=== PATIENT | female | born 1940 | race Caucasian/White ===

== ENCOUNTER 2016-12-24 07:54 | Emergency (ER) | payer OTHER ==
--- NOTE | 2016-12-24 08:01 | EDPHY ---
H & P Source: Patient, EMS - Medical/Surgical History Hx Asthma: Yes Hx Chronic Respiratory Disease: Yes Hx Diabetes: No Hx Cardiac Disease: Yes Hx Renal Disease: No Hx Cirrhosis: No Hx Alcoholism: No Hx HIV/AIDS: No Hx Splenectomy or Spleen Trauma: No Other PMH: MS, GERD, PREVIOUS [id number], BLOOD CLOT IN COLON 2007 - Social History Smoking Status: Former smoker <Kehinde Mesa - Last Filed: 12/24/16 08:16> <Kendrick Polk - Last Filed: 12/24/16 10:29> HPI/ROS: HPI CHIEF COMPLAINT: Fall, on Coumadin HISTORY OF PRESENT ILLNESS: This patient very pleasant 76-year-old female significant past medical history for MS, uses a walker to ambulate, Migraine headaches,history of FL, and history of "intestinal clot which she takes Coumadin for" patient presents emergency room by EMS from the [facility] after she sustained a fall on . She initially did not have any pain from this fall but over the past 2-3 days she has had progressively worsening left posterior rib pain headache and neck pain. She states that she thinks it was a mechanical trip and fall she was trying to get the bathroom quickly and somehow fell she is unsure exactly what her back hit. Since then she has been getting progressively worsening left posterior rib pain. No trouble breathing. No hemoptysis. No abdominal pain. Upon arrival to the emergency room as she does tell me she is hungry. She is GCS 15 she is alert or x4. It is noted she does have ecchymoses left posterior ribs, ecchymosis left posterior knee, and left forearm. Past Medical History: Migraine headaches, MS, history of FL, intestinal clot which she takes Coumadin for Past Surgical History: No recent surgery Social History: Lives at [facility] Family History: ROS REVIEW OF SYSTEMS: A comprehensive 10 point review of systems is otherwise negative aside from elements mentioned in the history of present illness. Exam Constitutional appears well nontoxic, triage nursing summary reviewed, vital signs reviewed, awake/alert. Eyes normal conjunctivae and sclera, EOMI, PERRLA. HENT head/neck: Atraumatic exam of head and neck, no obvious signs of trauma , moist mucus membranes, no epistaxis, neck supple/ no meningismus, no raccoon eyes. Respiratory clear to auscultation bilaterally, normal breath sounds, no respiratory distress, no wheezing. Cardiovascular rate normal, regular rhythm, no murmur, no edema, distal pulses normal. Gastrointestinal soft, non-tender, no rebound, no guarding, normal bowel sounds, no distension, no pulsatile mass. Genitourinary no CVA tenderness. Musculoskeletal no midline vertebral tenderness, tender palpation over the left posterior ribs, full range of motion, no calf swelling, no tenderness of extremities, no meningismus, good pulses, neurovascularly intact. Skin ecchymosis present left posterior ribs, also behind left popliteal space , also left forearm. pink, warm, & dry, no rash, skin atraumatic. Neurologic awake, alert and oriented x 3, AAOx3, moves all 4 extremities equally, motor intact, sensory intact, CN II-XII intact, normal cerebellar, normal vision, normal speech. Psychiatric normal mood/affect. Heme/Lymph/Immune no lymphadenopathy. Differential Diagnosis: Includes but is not limited to in a particular order multiple contusions, soft tissue injury, rib fractures, pneumothorax, hemothorax , closed head injury, intracranial bleeding given trauma on Coumadin, cervical spine injury Medical Decision Making: Plan for patient IV establishment full program management specialist IV fentanyl for acute pain control, gentle IV hydration, CT head without contrast CT neck without contrast for trauma and a two view chest x- ray. Reassess. Re-evaluation: Patient signed over to Dr. Polk at 815 shift change. (Kehinde Mesa) Constitutional: Initial Vital Signs O2 Sat (%) 95 12/24/16 08:05 O2 Delivery Mode Nasal Cannula O2 (L/minute) 2 Allergies/Adverse Reactions: No Known Allergies Allergy (Unverified 12/15/10 13:28) Home Medications: Medication Instructions Recorded Atenolol 25 mg 02/02/10 LANSOPRAZOLE [Prevacid] 15 mg PO DAILY #30 02/02/10 Lisinopril 02/02/10 Prozac 02/02/10 Warfarin 02/02/10 Fluoxetine 04/30/14 Spiriva Inhaler (RX) 04/30/14 Amitriptyline HCl 12/24/16 Medical Decision Making <Kehinde Mesa - Last Filed: 12/24/16 08:16> - Diagnostics Imaging: Discussed imaging studies w/ automation qa analyst Radiologist <Kendrick Polk E - Last Filed: 12/24/16 10:29> - Diagnostics Imaging Results: Imaging Impressions Chest X-Ray 12/24/16 08:05 Impression: 1. New moderate age-indeterminate compression fractures in the low thoracic spine since 2007. 2. Right posterior lateral 10th rib fracture (age indeterminate). 3. Clear lungs except for bronchiolitis in the right upper lobe. 4. No pneumothorax or effusion. Chest CT 12/24/16 08:42 Impression: 1. Acute nondisplaced posterior left 12th rib fracture at the junction with the spine. 2. Trace left effusion. 3. No pneumothorax. 4. New spiculated 2.7 x 1.3 cm left upper lobe lesion along the major fissure. Differential diagnosis includes non-small cell lung cancer, infectious or inflammatory nodule, or less likely rounded atelectasis. Recommend PET-CT versus 3 month follow up noncontrast chest CT. 5. Minimally worse centrilobular emphysema and bronchiolitis involving the right upper lobe and lingula. 6. Moderate T10 and mild T11 and L1 compression fractures are likely old. Findings discussed with Emergency Department physician, Kendrick Polk, on December 24, 2016 at 10:10 a.m. ED Course/Re-evaluation: Patient's care transferred to [place] at 8:15 a.m.. Chest x-ray is not completely visible for any rib injuries on the left. She is currently in CT scanner and I will add on a CT chest. 10:25 a[address]. we discussed the CT results. She and her daughter are relieved. We discussed the nodule and follow up with PET scan. They will see their regular doctor pain for this. They are happy with this and declines further workup or testing at this time. They are eager to go home. (Kendrick Polk) Differential Diagnosis: Partial list of the Differential diagnosis considered include but were not limited to; rib fracture, pneumothorax, pulmonary contusion, head injury, neck injury and although unlikely based on the history and physical exam, I also considered acute coronary disease, syncope, arrhythmia. I discussed these differential diagnoses and the plan with the patient as well as the usual and expected course. The patient understands that the diagnosis is provisional and that in medicine we are not always correct and that further workup is often warranted. Usual and customary warnings were given. All of the patient's questions were answered. The patient was instructed to return to the emergency department should the symptoms at all worsen or return, otherwise to followup with the physician as we discussed. (Kendrick Polk) - Data Points Laboratory Results: Laboratory Results 12/24/16 08:30 12/24/16 08:30 12/24/16 12/24/16 12/24/16 08:30 08:30 08:30 WBC 5.18 10^3/uL 10^3/uL (3.80-9.50) RBC 4.51 10^6/uL 10^6/uL (4.18-5.33) Hgb 13.5 g/dL g/dL (12.6-16.3) Hct 41.0 % % (38.0-47.0) MCV 90.9 fL fL (81.5-99.8) MCH 29.9 pg pg (27.9-34.1) MCHC 32.9 g/dL g/dL (32.4-36.7) RDW 13.3 % % (11.5-15.2) Plt Count 249 10^3/uL 10^3/uL (150-400) MPV 8.9 fL fL (8.7-11.7) Neut % (Auto) 75.8 % H % (39.3-74.2) Lymph % (Auto) 14.9 % L % (15.0-45.0) Grand % (Auto) 4.4 % L % (4.5-13.0) Eos % (Auto) 3.7 % % (0.6-7.6) Baso % (Auto) 1.0 % % (0.3-1.7) Nucleat RBC Rel Count 0.0 % % (0.0-0.2) Absolute Neuts (auto) 3.93 10^3/uL 10^3/uL (1.70-6.50) Absolute Lymphs (auto) 0.77 10^3/uL L 10^3/uL (1.00-3.00) Absolute Monos (auto) 0.23 10^3/uL L 10^3/uL (0.30-0.80) Absolute Eos (auto) 0.19 10^3/uL 10^3/uL (0.03-0.40) Absolute Basos (auto) 0.05 10^3/uL 10^3/uL (0.02-0.10) Absolute Nucleated RBC 0.00 10^3/uL 10^3/uL (0-0.01) Immature Gran % 0.2 % % (0.0-1.1) Immature Gran # 0.01 10^3/uL 10^3/uL (0.00-0.10) PT 34.8 SEC H SEC (12.0-15.0) INR 3.39 H (0.83-1.16) APTT 58.9 SEC H SEC (23.0-38.0) Sodium 140 mEq/L mEq/L (134-144) Potassium 4.3 mEq/L mEq/L (3.5-5.2) Chloride 106 mEq/L mEq/L (97-110) Carbon Dioxide 23 mEq/l mEq/l (22-31) Anion Gap 11 mEq/L mEq/L (8-16) BUN 12 mg/dL mg/dL (7-23) Creatinine 0.7 mg/dL mg/dL (0.6-1.0) Estimated GFR > 60 Glucose 81 mg/dL mg/dL (70-100) Calcium 9.2 mg/dL mg/dL (8.5-10.4) Medications Given: Discontinued Medications Fentanyl (Sublimaze) 50 mcg IVP EDNOW ONE Stop: 12/24/16 08:07 Last Admin: 12/24/16 08:43 Dose: 50 mcg Sodium Chloride (Ns) 1,000 mls @ 0 mls/hr IV ONCE ONE PRN Reason: Wide Open Stop: 12/24/16 08:06 Last Admin: 12/24/16 08:34 Dose: 1,000 mls Ondansetron HCl (Zofran) 4 mg IVP EDNOW ONE Stop: 12/24/16 08:06 Last Admin: 12/24/16 08:43 Dose: 4 mg Departure <Kehinde Mesa - Last Filed: 12/24/16 08:16> <Kendrick Polk - Last Filed: 12/24/16 10:29> - Departure Disposition: Home, Routine, Self-Care Clinical Impression: Multiple contusions Rib fracture Qualifiers: Encounter type: initial encounter Rib fracture type: single rib Fracture type: closed Laterality: left Qualified Code(s): S22.32XA - Fracture of one rib, left side, initial encounter for closed fracture Condition: Good Instructions: Contusion in Adults (ED), Rib Fracture (ED) Additional Instructions: Follow-up with Dr. Badillo as discussed about the nodule in the left upper lobe to rule out non small cell lung cancer. We would recommend a PET scan within 3 months. Referrals: Patient,NotPresent [Unknown] - As per Instructions Freddy Azar MD [Medical Doctor] - As per Instructions
[2016-12-24] MEDS ORDERED: ONDANSETRON 4 MG/2 ML VIAL IVP ONE (08:05)
[2016-12-24] MEDS ORDERED: NS 1,000 ML IV ONE (08:05)
[2016-12-24] MEDS ORDERED: fentaNYL 100 MCG/2 ML INJ IVP ONE (08:06)
[2016-12-24 08:08] VITALS: TEMP 97.9; O2SAT 95
[2016-12-24 08:39] LABS: % IMMATURE GRANULYOCYTES 0.2 % (0.0-1.1); ABSOLUTE IMMATURE GRANULOCYTES 0.01 10^3/uL (0.00-0.10); ADD DIFF? NO; ADD MORPH? NO; ADD SCAN? NO; ATYPICAL LYMPHOCYTE FLAG 10 (0-99); FRAGMENT RBC FLAG 0 (0-99); HEMOGLOBIN 13.5 g/dL (12.6-16.3); LEFT SHIFT FLG 0 (0-99); LIPEMIA HEMOLYSIS FLAG 80 (0-99); MEAN CELL HEMOGLOBIN 29.9 pg (27.9-34.1); MEAN CELL HEMOGLOBIN CONCENTR. 32.9 g/dL (32.4-36.7); MEAN CELL VOLUME 90.9 fL (81.5-99.8); MEAN PLATELET VOLUME 8.9 fL (8.7-11.7); PLATELET CLUMPS FLAG 50 (0-99); PLATELET COUNT 249 10^3/uL (150-400); RED BLOOD CELL COUNT 4.51 10^6/uL (4.18-5.33); RED CELL DISTRIBUTION WIDTH 13.3 % (11.5-15.2)
[2016-12-24 08:51] LABS: INR 3.39 (0.83-1.16); PROTIME(PATIENT) 34.8 SEC (12.0-15.0)
[2016-12-24 09:00] LABS: APTT 58.9 SEC (23.0-38.0)
[2016-12-24 09:11] LABS: ANION GAP 11 mEq/L (8-16); CALCIUM 9.2 mg/dL (8.5-10.4); CARBON DIOXIDE 23 mEq/l (22-31); CHLORIDE 106 mEq/L (97-110); CREATININE 0.7 mg/dL (0.6-1.0); GLOMERULAR FILTRATION RATE > 60; GLUCOSE 81 mg/dL (70-100); POTASSIUM 4.3 mEq/L (3.5-5.2); SODIUM 140 mEq/L (134-144)
[2016-12-24] MEDS ORDERED: IOPAMIDOL (ISOVUE-300) 100 ML BTL IV ONE (09:13)
[2016-12-24 10:06] VITALS: RESP 14
[2016-12-24 10:48] VITALS: BP 103/72; PULSE 78
== END 2016-12-24 10:46 | disposition home or self-care (01) ==
LOC: EDUNIT#
DX: S22.32XA Fracture of one rib, left side, initial encounter for closed fracture (principal); S80.12XA Contusion of left lower leg, initial encounter; S50.12XA Contusion of left forearm, initial encounter; J45.909 Unspecified asthma, uncomplicated; I25.2 Old myocardial infarction; Z87.891 Personal history of nicotine dependence; Z79.01 Long term (current) use of anticoagulants; W01.0XXA Fall on same level from slipping, tripping and stumbling without subsequent striking against object, initial encounter; Y92.002 Bathroom of unspecified non-institutional (private) residence as the place of occurrence of the external cause
CPT/HCPCS: 70450; 71020; 71260; 72125; 96361; 96374; 96375; 99285; J2405; J3010; Q9967

== ENCOUNTER 2017-02-13 10:08 | Day surgery (SDC) | payer OTHER ==
[~2017-02-13 10:08] MED LIST: NS 1,000 ML IV SCH
[2017-02-13] MEDS ORDERED: FLUMAZENIL 0.5 MG/5 ML MDV IVP ONE (10:22)
[2017-02-13] MEDS ORDERED: MIDAZOLAM 2 MG/2 ML VIAL ONE (10:22)
[2017-02-13] MEDS ORDERED: NALOXONE HCL 0.4 MG/ML INJ ONE (10:22)
[2017-02-13] MEDS ORDERED: fentaNYL 100 MCG/2 ML INJ ONE (10:23)
[2017-02-13 10:45] LABS: HEMATOCRIT 39.7 % (38.0-47.0)
[2017-02-13 11:06] LABS: INR 1.12 (0.83-1.16); PROTIME(PATIENT) 14.3 SEC (12.0-15.0)
[2017-02-13 11:07] LABS: APTT 28.1 SEC (23.0-38.0)
[2017-02-13] MEDS ORDERED: ONDANSETRON 4 MG/2 ML VIAL ONE (17:09)
== END 2017-02-13 17:30 | disposition home health service (06) ==
LOC: FIMAGING 10:08
PROVIDERS: ATTEND Internal Medicine
PROC: 0W9B3ZZ Drainage of Left Pleural Cavity, Percutaneous Approach (ICD-10-PCS; principal; 2017-02-13 13:20)
PROC: 0BBG3ZX Excision of Left Upper Lung Lobe, Percutaneous Approach, Diagnostic (ICD-10-PCS; principal; 2017-02-13 13:20)
DX: C34.12 Malignant neoplasm of upper lobe, left bronchus or lung (principal); J93.9 Pneumothorax, unspecified; Z79.01 Long term (current) use of anticoagulants; Z66 Do not resuscitate
CPT/HCPCS: J2250; J2310; J2405; J3010

== ENCOUNTER → 2017-02-14 | Outpatient (CLI) | payer OTHER | LOC: FIMAGING 15:40 | PROVIDERS: ATTEND Radiology Diagnostic Radiology | DX: Z09 Encounter for follow-up examination after completed treatment for conditions other than malignant neoplasm (principal); J93.9 Pneumothorax, unspecified ==

== ENCOUNTER → 2017-07-03 | Outpatient (CLI) | payer OTHER ==
[~2017-07-03] MED LIST changes: +IOPAMIDOL (ISOVUE-300) 100 ML BTL ONE; -NS 1,000 ML IV SCH
== END ==
LOC: FIMAGING 11:16
PROVIDERS: ATTEND Radiology Radiation Oncology
DX: C34.12 Malignant neoplasm of upper lobe, left bronchus or lung (principal); R91.1 Solitary pulmonary nodule; J43.9 Emphysema, unspecified; M80.08XA Age-related osteoporosis with current pathological fracture, vertebra(e), initial encounter for fracture
CPT/HCPCS: 71260; Q9967

== ENCOUNTER → 2017-10-01 | Outpatient (CLI) | payer OTHER | LOC: FIMAGING 13:24 | PROVIDERS: ATTEND Radiology Radiation Oncology | DX: C41.2 Malignant neoplasm of vertebral column (principal); R91.8 Other nonspecific abnormal finding of lung field; S22.000A Wedge compression fracture of unspecified thoracic vertebra, initial encounter for closed fracture; Z92.3 Personal history of irradiation | CPT/HCPCS: 71260; Q9967 ==

== ENCOUNTER 2017-10-20 11:11 | Inpatient (IN) | payer OTHER ==
[2017-10-20] MEDS ORDERED: NS 1,000 ML IV ONE (11:42)
[2017-10-20] MEDS ORDERED: ONDANSETRON 4 MG/2 ML VIAL IVP ONE (11:42)
--- NOTE | 2017-10-20 11:49 | CPEKG ---
Heart Rate: 89 RR Interval: 674 P-R Interval: 208 QRSD Interval: 96 QT Interval: 424 QTC Interval: 516 P Ideal: 82 QRS Ideal: -51 T Wave Ideal: 61 EKG Severity - ABNORMAL ECG - EKG Impression: SINUS RHYTHM EKG Impression: GIAN, CONSIDER BIATRIAL ABNORMALITIES EKG Impression: LEFT ANTERIOR FASCICULAR BLOCK EKG Impression: CONSIDER RIGHT VENTRICULAR HYPERTROPHY EKG Impression: BORDERLINE R WAVE PROGRESSION, ANTERIOR LEADS EKG Impression: PROLONGED QT INTERVAL Electronically Signed By: Alessandra Celaya 20-Oct-2017 15:28:20
[2017-10-20] MEDS ORDERED: IOPAMIDOL (ISOVUE-300) 100 ML BTL ONE (11:53)
[2017-10-20] MEDS ORDERED: PHYTONADIONE 10 MG in NS 50 ML IV ONE (12:38)
--- NOTE | 2017-10-20 12:44 | EDPHY ---
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 Patient contacted her son and asked him to come and help her up off of the ground. She had fallen sometime in the sociology professor hours. Patient was found by the son on the floor with her walker next door. She seemed confused per the son's history. She was helped to her feet but declined EMS. Patient presented with her son and daughter via private car. At home she had had nausea and 1 bout of vomiting. Patient herself currently states that she has a headache, pain in her neck, and is nauseated. She reports she feels somewhat confused. She is oriented x3 on my examination. Patient states she has been feeling poorly for the past 4 days. Complaining of nausea and not eating or drinking well. Some vomiting intermittently over those days but no diarrhea. Patient denies chest pain or shortness of breath. She denies palpitations, lightheadedness. REVIEW OF SYSTEMS: Aside from elements discussed in the HPI, a comprehensive 10-point review of systems was reviewed and is negative. PAST MEDICAL HISTORY: As above, multiple sclerosis, recently diagnosed lung cancer, anticoagulated secondary to "clot in the abdomen ", history of myocardial infarction. SOCIAL HISTORY: Here with her family. She lives in independent living at [place]. VITAL SIGNS Reviewed by me. GENERAL: Elderly female, complaining of headache, nauseated. HEENT: Atraumatic. Eyes: PERRL, EOMI, No icterus, no injection. Mouth: Dry lips, moist mucous membranes. No erythema or lesions. Neck: supple with no adenopathy. No midline tenderness to palpation. LUNGS: Clear to auscultation bilaterally, no wheezes, rhonchi or rales. CHEST: Ecchymosis present over the right posterior chest. Large ecchymosis across the right anterior chest wall and right breast. CARDIAC: Regular rate and rhythm, no rubs, murmurs or gallops. ABDOMEN: Soft, nontender, nondistended, bowel sounds normal. BACK: No CVA tenderness. EXTREMITIES: Old ecchymosis across the left ft. Abrasions on both knees. Normal range of motion at the knees, ankle, feet. NEURO: Alert and oriented x3, grossly nonfocal. SKIN: Warm and dry, no rash. PSYCHIATRIC: Normal mentation, no agitation. Smoking Status: Former smoker Constitutional: Initial Vital Signs Temperature (C) 36.7 C 10/20/17 11:25 Heart Rate 92 10/20/17 11:25 Respiratory Rate 18 10/20/17 11:25 Blood Pressure 158/81 H 10/20/17 11:25 O2 Sat (%) 92 10/20/17 11:25 O2 Delivery Mode Nasal Cannula O2 (L/minute) 2 Allergies/Adverse Reactions: No Known Allergies Allergy (Unverified 12/15/10 13:28) Home Medications: Medication Instructions Recorded Atenolol 25 mg mg PO DAILY 02/02/10 Lisinopril mg PO DAILY 02/02/10 Prozac mg PO DAILY 02/02/10 Warfarin mg PO DAILY 02/02/10 Spiriva Inhaler (RX) mg IH DAILY 04/30/14 Amitriptyline HCl mg PO DAILY 12/24/16 Medical Decision Making - Diagnostics Imaging Results: Imaging Impressions Head CT 10/20/17 11:44 Impression: Acute right hemispheric hemorrhage, predominantly interventricular. Possible shunt tube malfunction. 2. CT Cervical Spine Without Contrast History: Trauma. All. Patient on Coumadin. Technique: Multislice helical CT through the cervical spine without contrast from the skull base to T1. Soft tissue and bone evaluation is performed. Sagittal and coronal reconstructions are obtained and reviewed. Dose reduction techniques were utilized. Findings: There is multilevel spondylosis between C2 and C7 with mild retrolisthesis at C3-C4, mild spondylolisthesis at C4-C5, and moderate retrolisthesis at C5-C6 and C6-C7. There is degenerative disk space narrowing between C3 and C7 with vacuum phenomenon present between C3 and C6. There are moderate posterior osteophytes present between C3 C5 and C7. There is calcification of the posterior longitudinal ligament associated with a moderate central disk protrusion at C2-C3. There is osteoarthritic change of the anterior C1-C2 articulation. There is degenerative calcification of the thickened transverse ligament greatest to the left of midline. The C1-C2 articulation is normally aligned. The odontoid process is intact. There is a large posterior nuchal ligament calcification behind the C5 vertebral body. The spinous processes are intact. Facet joints are normally aligned and intact. There is scattered degenerative facet disease. Impression: No acute posttraumatic abnormality identified. 3. CT Chest Without Contrast History: Trauma, fall Technique: Noncontrast, single breath-hold, [address] through the chest without contrast. Dose reduction techniques were utilized. Comparison: 07/03/2017 Findings: There is lateral segment left upper lobe consolidation with air bronchograms suggestive of pneumonia. This is superimposed upon diffuse emphysema. This was present previously and is little if at all changed in size. There is however increased infiltrate present locally around it. There is no pleural effusion or pericardial effusion. Heart size is normal. A right central venous catheter is present with tip in the superior vena cava. There is no lung mass or adenopathy. There are stable bilateral subcentimeter noncalcified peripheral noncalcified nodules raising the possibility of underlying ULISES infection. The largest nodule is in the posterior left lower lobe, is irregularly marginated and measures approximately 11 x 7 mm (image 158 series 4 ) and is specifically unchanged. There are stable old posterior left 10th 11th and 12th rib fractures. The costovertebral junctions are normally aligned. No obvious acute rib fracture is identified. Both shoulders are normally located. Compression abnormalities of T1, T4, T8, T10 and T11 are stable. No new compressions are identified. Impression: 1. No definite acute posttraumatic abnormality identified 2. Query underlying pneumonia superimposed upon a chronic area of consolidation in the lateral left upper lobe, abutting the left major fissure. Underlying lung malignancy cannot be excluded. 3. 4 month stability of multiple bilateral noncalcified pulmonary nodules, possibly indicating ULISES infection in this elderly patient with emphysema. General information for patients regarding this examination can be found at [email or web address] If you have questions or comments about this report, please contact me at [phone] (hospital) or [phone] (cell). 3. Final results are concordant with the initial interpretation. General information for patients regarding this examination can be found at [email or web address]. If you have questions or comments about this report, please contact me at (hospital) or [phone] (cell). Cervical Spine CT 10/20/17 11:45 Impression: Acute right hemispheric hemorrhage, predominantly interventricular. Possible shunt tube malfunction. 2. CT Cervical Spine Without Contrast History: Trauma. All. Patient on Coumadin. Technique: Multislice helical CT through the cervical spine without contrast from the skull base to T1. Soft tissue and bone evaluation is performed. Sagittal and coronal reconstructions are obtained and reviewed. Dose reduction techniques were utilized. Findings: There is multilevel spondylosis between C2 and C7 with mild retrolisthesis at C3-C4, mild spondylolisthesis at C4-C5, and moderate retrolisthesis at C5-C6 and C6-C7. There is degenerative disk space narrowing between C3 and C7 with vacuum phenomenon present between C3 and C6. There are moderate posterior osteophytes present between C3 C5 and C7. There is calcification of the posterior longitudinal ligament associated with a moderate central disk protrusion at C2-C3. There is osteoarthritic change of the anterior C1-C2 articulation. There is degenerative calcification of the thickened transverse ligament greatest to the left of midline. The C1-C2 articulation is normally aligned. The odontoid process is intact. There is a large posterior nuchal ligament calcification behind the C5 vertebral body. The spinous processes are intact. Facet joints are normally aligned and intact. There is scattered degenerative facet disease. Impression: No acute posttraumatic abnormality identified. 3. CT Chest Without Contrast History: Trauma, fall Technique: Noncontrast, single breath-hold, [address] through the chest without contrast. Dose reduction techniques were utilized. Comparison: 07/03/2017 Findings: There is lateral segment left upper lobe consolidation with air bronchograms suggestive of pneumonia. This is superimposed upon diffuse emphysema. This was present previously and is little if at all changed in size. There is however increased infiltrate present locally around it. There is no pleural effusion or pericardial effusion. Heart size is normal. A right central venous catheter is present with tip in the superior vena cava. There is no lung mass or adenopathy. There are stable bilateral subcentimeter noncalcified peripheral noncalcified nodules raising the possibility of underlying ULISES infection. The largest nodule is in the posterior left lower lobe, is irregularly marginated and measures approximately 11 x 7 mm (image 158 series 4 ) and is specifically unchanged. There are stable old posterior left 10th 11th and 12th rib fractures. The costovertebral junctions are normally aligned. No obvious acute rib fracture is identified. Both shoulders are normally located. Compression abnormalities of T1, T4, T8, T10 and T11 are stable. No new compressions are identified. Impression: 1. No definite acute posttraumatic abnormality identified 2. Query underlying pneumonia superimposed upon a chronic area of consolidation in the lateral left upper lobe, abutting the left major fissure. Underlying lung malignancy cannot be excluded. 3. 4 month stability of multiple bilateral noncalcified pulmonary nodules, possibly indicating ULISES infection in this elderly patient with emphysema. General information for patients regarding this examination can be found at [email or web address]. If you have questions or comments about this report, please contact me at (hospital) or [phone] (cell). 3. Final results are concordant with the initial interpretation. General information for patients regarding this examination can be found at [email or web address]. If you have questions or comments about this report, please contact me at [phone](hospital) or [phone] (cell). Chest CT 10/20/17 12:05 Impression: Acute right hemispheric hemorrhage, predominantly interventricular. Possible shunt tube malfunction. 2. CT Cervical Spine Without Contrast History: Trauma. All. Patient on Coumadin. Technique: Multislice helical CT through the cervical spine without contrast from the skull base to T1. Soft tissue and bone evaluation is performed. Sagittal and coronal reconstructions are obtained and reviewed. Dose reduction techniques were utilized. Findings: There is multilevel spondylosis between C2 and C7 with mild retrolisthesis at C3-C4, mild spondylolisthesis at C4-C5, and moderate retrolisthesis at C5-C6 and C6-C7. There is degenerative disk space narrowing between C3 and C7 with vacuum phenomenon present between C3 and C6. There are moderate posterior osteophytes present between C3 C5 and C7. There is calcification of the posterior longitudinal ligament associated with a moderate central disk protrusion at C2-C3. There is osteoarthritic change of the anterior C1-C2 articulation. There is degenerative calcification of the thickened transverse ligament greatest to the left of midline. The C1-C2 articulation is normally aligned. The odontoid process is intact. There is a large posterior nuchal ligament calcification behind the C5 vertebral body. The spinous processes are intact. Facet joints are normally aligned and intact. There is scattered degenerative facet disease. Impression: No acute posttraumatic abnormality identified. 3. CT Chest Without Contrast History: Trauma, fall Technique: Noncontrast, single breath-hold, [address] through the chest without contrast. Dose reduction techniques were utilized. Comparison: 07/03/2017 Findings: There is lateral segment left upper lobe consolidation with air bronchograms suggestive of pneumonia. This is superimposed upon diffuse emphysema. This was present previously and is little if at all changed in size. There is however increased infiltrate present locally around it. There is no pleural effusion or pericardial effusion. Heart size is normal. A right central venous catheter is present with tip in the superior vena cava. There is no lung mass or adenopathy. There are stable bilateral subcentimeter noncalcified peripheral noncalcified nodules raising the possibility of underlying ULISES infection. The largest nodule is in the posterior left lower lobe, is irregularly marginated and measures approximately 11 x 7 mm (image 158 series 4 ) and is specifically unchanged. There are stable old posterior left 10th 11th and 12th rib fractures. The costovertebral junctions are normally aligned. No obvious acute rib fracture is identified. Both shoulders are normally located. Compression abnormalities of T1, T4, T8, T10 and T11 are stable. No new compressions are identified. Impression: 1. No definite acute posttraumatic abnormality identified 2. Query underlying pneumonia superimposed upon a chronic area of consolidation in the lateral left upper lobe, abutting the left major fissure. Underlying lung malignancy cannot be excluded. 3. 4 month stability of multiple bilateral noncalcified pulmonary nodules, possibly indicating ULISES infection in this elderly patient with emphysema. General information for patients regarding this examination can be found at [email or web address]. If you have questions or comments about this report, please contact me at (hospital) or [phone] (cell). 3. Final results are concordant with the initial interpretation. General information for patients regarding this examination can be found at [email or web address]. If you have questions or comments about this report, please contact me at (hospital) or [phone] (cell). Foot X-Ray 10/20/17 12:59 Impression: Acute fractures of the second, third and fifth toes. Imaging: Discussed imaging studies w/ order caller Radiologist ED Course/Re-evaluation: Anticoagulated a 75-year-old female presenting with dizziness, headache, and nausea after a fall this morning. No obvious signs of head trauma on examination but the patient does have significant ecchymosis across her back and chest. Patient's head CT demonstrates bleeding associated with the ventriculostomy tube on the right. On return from CT, I reviewed the CT scans myself. Conferred with Dr. Castillo who was in agreement. Patient is on Coumadin. Last INR is 3.0. Course discussed with Dr. Galvan from Neurosurgery. Patient will be transferred urgently to the emergency department at [facility] for further evaluation and reversal of her anticoagulation if needed. Dr. Galvan asked that we hold on reversal of anticoagulation until he has a chance to see and evaluate the patient and review her studies. Patient's CT findings were discussed with the patient and the family. The understand the need for transfer. General trauma surgery was paged at 1:09 p.m.. Course discussed with Dr. Anne at 1:11 p.m. he will evaluate the patient at the [facility] emergency department. Remainder of the patient's trauma evaluation: Chest CT demonstrates no acute traumatic findings. Patient does have a history of recently diagnosed lung cancer which was treated with radiation. Please see the CT scans for further information regarding these findings. CT scan of the cervical spine demonstrates no acute traumatic findings. Left foot x-ray: Patient has proximal phalanx fractures of the 2nd, 3rd, and 5th toe of the left foot. Of note: Patient's troponin is also elevated at 0.038. EKG does not demonstrate any acute ischemic findings although she has significant baseline artifact. 1:38 p.m.: EMS has arrived. Patient will be transferred to [facility] for further evaluation and management of her post traumatic findings. She is to be NPO. Differential Diagnosis: Differential diagnosis of this patient's traumatic event was considered including but not limited to intracranial injury, long bone and pelvic bone fracture, spinal injury, intrathoracic injury, extremity injury, intra- abdominal injury, lacerations, abrasions, and contusions. - Data Points Laboratory Results: Laboratory Results 10/20/17 12:49 10/20/17 12:49 10/20/17 10/20/17 10/20/17 14:32 12:49 12:49 WBC RBC Hgb POC Hgb Hct POC Hct MCV MCH MCHC RDW Plt Count MPV Neut % (Auto) Lymph % (Auto) [place] % (Auto) Eos % (Auto) Baso % (Auto) Nucleat RBC Rel Count Absolute Neuts (auto) Absolute Lymphs (auto) Absolute Monos (auto) Absolute Eos (auto) Absolute Basos (auto) Absolute Nucleated RBC Immature Gran % Immature Gran # PT 30.3 SEC H SEC (12.0-15.0) INR 3.00 H (0.83-1.16) POC Sodium Sodium 137 mEq/L mEq/L (135-145) POC Potassium Potassium 3.6 mEq/L mEq/L (3.5-5.2) POC Chloride Chloride 93 mEq/L L mEq/L (97-110) Carbon Dioxide 25 mEq/l mEq/l (22-31) Anion Gap 19 mEq/L H mEq/L (8-16) POC BUN BUN 14 mg/dL mg/dL (7-23) Creatinine 0.6 mg/dL mg/dL (0.6-1.0) POC Creatinine Estimated GFR > 60 Glucose 123 mg/dL H mg/dL (70-100) POC Glucose Calcium 9.3 mg/dL mg/dL (8.5-10.4) Creatine Kinase CK-MB (CK-2) Fraction CK-MB (CK-2) % Creatine Kinase Interp Troponin I 0.038 ng/mL H ng/mL (0.000-0.034) Patient ABO/Rh AB POSITIVE 10/20/17 10/20/17 10/20/17 12:49 12:45 12:41 WBC 15.28 10^3/uL H 10^3/uL (3.80-9.50) RBC 4.27 10^6/uL 10^6/uL (4.18-5.33) Hgb 12.8 g/dL g/dL (12.6-16.3) POC Hgb 13.3 gm/dL gm/dL (12.6-16.3) Hct 38.2 % % (38.0-47.0) POC Hct 39 % % (38-47) MCV 89.5 fL fL (81.5-99.8) MCH 30.0 pg pg (27.9-34.1) MCHC 33.5 g/dL g/dL (32.4-36.7) RDW 13.6 % % (11.5-15.2) Plt Count 245 10^3/uL 10^3/uL (150-400) MPV 8.6 fL L fL (8.7-11.7) Neut % (Auto) 93.3 % H % (39.3-74.2) Lymph % (Auto) 2.7 % L % (15.0-45.0) [place] % (Auto) 3.5 % L % (4.5-13.0) Eos % (Auto) 0.1 % L % (0.6-7.6) Baso % (Auto) 0.1 % L % (0.3-1.7) Nucleat RBC Rel Count 0.0 % % (0.0-0.2) Absolute Neuts (auto) 14.26 10^3/uL H 10^3/uL (1.70-6.50) Absolute Lymphs (auto) 0.41 10^3/uL L 10^3/uL (1.00-3.00) Absolute Monos (auto) 0.54 10^3/uL 10^3/uL (0.30-0.80) Absolute Eos (auto) 0.01 10^3/uL L 10^3/uL (0.03-0.40) Absolute Basos (auto) 0.02 10^3/uL 10^3/uL (0.02-0.10) Absolute Nucleated RBC 0.00 10^3/uL 10^3/uL (0-0.01) Immature Gran % 0.3 % % (0.0-1.1) Immature Gran # 0.04 10^3/uL 10^3/uL (0.00-0.10) PT INR POC Sodium 135 mEq/L mEq/L (135-145) Sodium POC Potassium 3.8 mEq/L mEq/L (3.3-5.0) Potassium POC Chloride 96 mEq/L L mEq/L (97-110) Chloride Carbon Dioxide Anion Gap POC BUN 16 mg/dL mg/dL (7-23) BUN Creatinine POC Creatinine 0.6 mg/dL mg/dL (0.6-1.0) Estimated GFR Glucose POC Glucose 131 mg/dL H mg/dL (70-100) Calcium Creatine Kinase 266 IU/L H IU/L (0-156) CK-MB (CK-2) Fraction 8.33 ng/mL H ng/mL (0.00-4.55) CK-MB (CK-2) % 3.1 % % (0.0-4.0) Creatine Kinase Interp NEGATIVE (NEGATIVE) Troponin I Patient ABO/Rh Medications Given: Discontinued Medications Sodium Chloride (Ns) 1,000 mls @ 0 mls/hr IV ONCE ONE; Wide Open PRN Reason: Protocol Stop: 10/20/17 11:43 Last Admin: 10/20/17 12:49 Dose: 1,000 mls Phytonadione 10 mg/ Sodium (Chloride) 51 mls @ 102 mls/hr IV ONCE ONE Stop: 10/20/17 13:07 Last Admin: 10/20/17 13:35 Dose: Not Given Ondansetron HCl (Zofran) 4 mg IVP EDNOW ONE Stop: 10/20/17 11:43 Last Admin: 10/20/17 12:50 Dose: 4 mg Point of Care Test Results: 10/20/17 12:41 POC Sodium 135 POC Potassium 3.8 POC Chloride 96 L POC BUN 16 POC Creatinine 0.6 POC Glucose 131 H Departure - Departure Disposition: [facility] Clinical Impression: Intraventricular hemorrhage, Elevated troponin Headache Qualifiers: Headache type: other headache syndrome Qualified Code(s): G44.89 - Other headache syndrome Toe fracture, left Qualifiers: Encounter type: initial encounter Toe: lesser toe Fracture type: closed Phalanx : proximal Fracture alignment: displaced Qualified Code(s): S92.512A - Displaced fracture of proximal phalanx of left lesser toe(s), initial encounter for closed fracture Condition: Fair Referrals: Carlton Badillo MD [Primary Care Provider] - As per Instructions
[2017-10-20 12:57] LABS: PLATELET COUNT 245 10^3/uL (150-400)
[2017-10-20 13:15] LABS: PROTIME(PATIENT) 30.3 SEC (12.0-15.0)
[2017-10-20 13:41] LABS: CREATINE KINASE 266 IU/L (0-156)
[2017-10-20] MEDS ORDERED: NS 1,000 ML IV SCH (15:15)
[2017-10-20] MEDS ORDERED: hydrALAZINE 20 MG/ML VIAL IVP PRN (15:18)
[2017-10-20] MEDS ORDERED: ONDANSETRON 4 MG/2 ML VIAL IVP PRN (15:18)
--- NOTE | 2017-10-20 15:29 | EDPHY ---
ED Progress Note Narrative: The patient was evaluated by the trauma surgeon and neurosurgeon in the emergency department. She had been evaluated by the emergency department physician at [facility] prior to arrival. She will be admitted to the hospital under the care of the neurosurgeon for further evaluation and treatment.
--- NOTE | 2017-10-20 15:43 | GCON ---
[f rep st] CONSULTATION ADMITTING DIAGNOSIS: Fall. HISTORY: Ms. Chen is a 77-year-old white female who has a PRODUCTION REPRODUCTION MANAGER shunt in place for hydrocephalus. She had a heart attack in 1990. 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 She walks with a walker. She does have multiple sclerosis and is slightly weaker on the left side. She falls about once every 6 months. This morning she fell and had a difficult time getting up. She was found by her son apparently and taken to [facility]. At [facility] a CT of her head showed changes in her right posterior horn where the shunt enters the ventricle. Dr. Galvan will be seeing the patient in the very near future to decide whether this is representing an acute bleed or fibrosis. The rest of her evaluation at [facility] was negative. There are chronic changes in her cervical spine. 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 SOCIAL HISTORY: She smoked from ages 17 to 49 at 2 packs a day. She does not currently drink. ALLERGIES: She has no known drug allergies. MEDICATIONS: Amitriptyline, atenolol, lisinopril, Prozac, Spiriva, and warfarin. PAST SURGICAL HISTORY: D and C, the above-mentioned PRODUCTION REPRODUCTION MANAGER shunt, the surgery for the mesenteric blood clots, cataract extraction with intraocular lens placement , a left hip replacement, and a right hip surgery that she believes was a pinning. There is no history of rheumatic fever, tuberculosis, hepatitis, or transfusions. REVIEW OF SYSTEMS: She was diagnosed as having lung cancer last spring, has undergone radiation therapy. She wears lenses for visual correction. She has an upper dental plate. She has had occasional stress incontinence. She moves her bowels daily. Her multiple sclerosis is getting slowly worse. PHYSICAL EXAMINATION: NEUROLOGIC: She is awake and alert. She is oriented to person, place, and time, and a GCS is 15 at this point. She has difficulty subtracting 7's from 100. She came up with 33. She has no new neurologic complaints. Strength is 5/5 in all muscle groups. There are no focal lateralizing deficits. She has normal dental occlusion and normal cranial nerve function. NECK: There is a small lipoma just superior to her right clavicular head. I do not detect any bruits or thyroid enlargement. MUSCULOSKELETAL: Her back is structurally unremarkable. LUNGS: Clear to auscultation. CHEST: Stable to AP and lateral compression. CARDIAC: Shows S1 , S2 to be normal. ABDOMEN: Generous, but soft. The pelvis is stable to AP and lateral compression. SKIN: She has multiple contusions. She has a contusion in her right posterior lateral back at approximate level of 8th rib. She has a contusion of her right pectoralis major. She has a contusion over her right shoulder. She has contusions on her left wrist. She has a contusion over the right lateral proximal femur. She has bilateral knee contusions, right mid hernandez contusion, right distal hernandez contusion, bilateral forefoot contusions, and contusions over left toes 1-5. Note is made that her INR was approximately 3 at [facility]. I am unable to obtain records from 2007 to determine whether this was an arterial clot, a venous clot, and whether a hypercoagulation workup had been obtained. IMPRESSION/PLAN: 1. Patient with fall with questionable bleed into her right ventricle. Dr. Galvan to assess and he will make the decisions to correction of her anticoagulation. 2. History of mesenteric venous thrombosis 9 years ago. Etiology unclear and it is also unclear whether she has a hypercoagulable state. 3. 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 4. At this point, I see nothing further to add from a trauma standpoint. Dr. Galvan is coming to see the patient. . /[id number]/MODL MTDD
--- NOTE | 2017-10-20 16:13 | GHP ---
[f rep st] HISTORY AND PHYSICAL DATE OF ADMISSION: 10/20/2017 CONSULTING SERVICE: Emergency Medicine. LMFT/ADMITTING PHYSICIAN: Dr. Galvan. REASON FOR CONSULT: Intraventricular hemorrhage. 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 The patient contacted her son and asked him to come and hel p her get off the ground. She had fallen sometime in the skate maker, he believes approximately 7 a.m. She seemed a little bit confused to her son upon his arrival. She had nausea and a bout of vom iting at that time as well. She was taken to [facility] and head CT was performed, which demons trated a right intraventricular hemorrhage associated with a ventriculoperitoneal shunt catheter on t hat side. Later, she did admit to having some nausea for several days and she does have bruising of various ages, so it is unknown if the fall today played a role in her CT scan finding. She was also evaluated in the ED by Dr. Andrea Anne of Trauma surgery. He found no major injuries from. PAST MEDICAL HISTORY: Per HPI and myocardial infarction. ALLERGIES: No known drug allergies. CODE STATUS: Full. HOME MEDICATIONS: 1. Atenolol. 2. Lisinopril. 3. Prozac. 4. Warfarin. 5. Spiriva inhaler. 6. Amitriptyline. SOCIAL HISTORY: Lives in an independent living facility at [place], denies smoking, alcohol, or drug abuse. FAMILY HISTORY: No known history of intracranial hemorrhage. REVIEW OF SYSTEMS: 10-points reviewed and are negative other than mentioned in HPI. VITAL SIGNS: Afebrile with a temperature of 36.9 degrees Celsius, blood pressure 150/115, heart rate 92, respiratory rate 18, saturating 96% on 1 L nasal cannula. LABORATORIES: White blood cell count 15, hemoglobin 12.8, platelet count 245. INR of 3. Sodium 137 , potassium 3.6, BUN 14, creatinine 0.6, glucose 123. NEUROLOGIC EXAM: Patient is awake, alert, and oriented. She has formed speech and follows all comma nds. She has normal cranial nerves, is nonfocal neurologically and relatively normal sensory exam. Normal reflex exam. No cerebellar findings. Gait is deferred. IMAGING STUDIES: Review of imaging, I reviewed the patient's head CT and comparison from the past an d do agree that she has new intraventricular hemorrhage on the right side on the same side of a ventr iculoperitoneal shunt catheter. She has stable ventricular size and no signs of new ventricular obst ruction. CURRENT IMPRESSION AND PLAN: A 77-year-old female with multiple medical problems on Coumadin with a fall earlier today and nausea for several days with a head CT that demonstrates and a small amount of right lateral intraventricular hemorrhage associated with the ventriculoperitoneal shunt catheter on that side. The patient's initial CT was at 12 today and her fall was presumably around 6 or 7, so w e will repeat another head CT in 4 hours from the first. She has a very good neurologic exam and I a m reassured by this. It is possible that this hemorrhage is older than this morning as the patient h as had nausea for some days. We will admit her to the step-down unit for observation and a repeat he ad CT, antiemetics, and IV fluid hydration. She can eat given her very good neurologic exam and she will potentially be discharged tomorrow or the next day if things remain as they are now. We are not going actively reverse her Coumadin, but we will hold her doses and let her INR drift down on its ow n unless she has neurologic change. Thank you for this consult. /[id number]/MODL
[2017-10-20] MEDS: NS W/ 20 KCl/L 1,000 ML IV SCH (16:45)
[2017-10-20] MEDS: niCARdipine/NACL 200 ML IV SCH ×2 (17:51→21:00)
--- NOTE | 2017-10-21 06:51 | NEUSURGPN ---
Assessment/Plan: Assessment: 77 yo female that is s/p fall with IVH with hx of shunt placement Plan: -s/p fall with IVH and hx of shunt placement: CT stable with noted larger ventricles on CT c/w prior imaging years ago -awake and alert -PT/OT/ST pending -hold coumadin -follow neuro status-stable -pt understands and agrees -call with any questions or concerns -d/w Dr Galvan Subjective: Awake and alert. NAD. Eating/drinking and voiding. No f/c/n/v/d. Objective: AAO x 3, PERRLA/EOMI no droop CN 2-12 grossly intact +lt touch 5/5 BUE/BLE = Neuro Check Frequency: per routine Urinary Catheter in Place: No - Physician Discussed Patient with : Mandy Neurosurgery Physical Exam - Vitals, I&O, Labs I and O 10/20/17 10/21/17 10/22/17 05:59 05:59 05:59 Intake Total 1425 Output Total 300 Balance 1125 Weight 63.6 kg Intake: Oral (ml) 225 IV Infused (ml) 1200 NS W/ 20 KCl/L 1,000 ml @ 900 75 mls/hr IV CONT REBECCA Rx #:[id number] niCARdipine/NACL 200 ml @ 300 Titrate IV CONT REBECCA Rx#: [id number] Output: Urine (ml) 300 Bedpan 300 Other: Intake Quantity Yes Sufficient Number of Voids 1 Incontinence 5 Vital Signs Temp Pulse Resp BP Pulse Ox 36.9 C 98 24 H 135/55 H 100 10/21/17 04:00 10/21/17 05:43 10/21/17 05:43 10/21/17 05:43 10/21/17 05:43 ICD10 Worksheet Patient Problems: Problems Problem Status Onset Elevated troponin Acute Headache Acute Intraventricular hemorrhage Acute Toe fracture, left Acute
[2017-10-21] MEDS: NS W/ 20 KCl/L 1,000 ML IV SCH (07:33)
[2017-10-21] MEDS: niCARdipine/NACL 200 ML IV SCH ×2 (08:03→21:00)
[2017-10-21] MEDS: TIOTROPIUM INHALER 18 MCG/DOSE 5 DOSE/MDI IH SCH (08:53)
[2017-10-21] MEDS ORDERED: AMITRIPTYLINE HCL 10 MG TAB PO SCH (09:00)
--- NOTE | 2017-10-21 09:41 | ASMTCMCOM ---
CM Note CM Note Notes: 77 year old female admitted for intraventricular Hemorrhage assoc. with shunt. She has a hx of MS and a new dx of lung CA. Therapies to eval. Patient lives at [facility] and her son lives in [place]. XCM to follow Date Signed: 10/21/2017 09:40 AM Electronically Signed By:Adilene Flores LCSW
[2017-10-21] MEDS: ATENOLOL 25 MG TAB PO SCH (09:44)
[2017-10-21] MEDS: LISINOPRIL 5 MG TAB PO SCH (09:44)
[2017-10-21] MEDS: FLUoxetine 20 MG CAP PO SCH (09:44)
[2017-10-21] MEDS: hydrALAZINE 20 MG/ML VIAL IVP PRN ×2 (09:51→18:14)
--- NOTE | 2017-10-21 10:37 | TRAUMAPN ---
Assessment/Plan: Addendum to consult: She does have fractures of left proximal phalanxs 2,3,5 that are minimally displaced. I recommend either a walker boot or orthopedic consult. Objective: Vital Signs Temp Pulse Resp BP Pulse Ox 36.9 C 98 24 H 144/54 H 99 10/21/17 04:00 10/21/17 09:44 10/21/17 09:19 10/21/17 09:51 10/21/17 09:19 10/20/17 10/21/17 10/22/17 05:59 05:59 05:59 Intake Total 1425 Output Total 300 Balance 1125 PT 30.3 SEC (12.0-15.0) H 10/20/17 12:49 INR 3.00 (0.83-1.16) H 10/20/17 12:49
[2017-10-21] MEDS: AMITRIPTYLINE HCL 10 MG TAB PO SCH (22:23)
[2017-10-22] MEDS: NS W/ 20 KCl/L 1,000 ML IV SCH ×2 (00:37→18:23)
--- NOTE | 2017-10-22 06:52 | NEUSURGPN ---
Assessment/Plan: Assessment: 77 yo female that is s/p fall with IVH with hx of shunt placement Plan: -s/p fall with IVH and hx of shunt placement: CT stable with noted larger ventricles on CT c/w prior imaging years ago-Dr Galvan aware and will follow up with this as an outpt -awake and alert -PT/OT/ST-CPM -pt still on small amount of Cardene-hydralazine ordered -rehab consult pending -awaiting placement to rehab -hold coumadin -follow neuro status-stable -pt understands and agrees -call with any questions or concerns -d/w Dr Galvan Subjective: Awake and alert. NAD. Eating/drinking and voiding. No f/c/n/v/d. No watt/neck/ chest/abd or gu complaints. Objective: AAO x 3, PERRLA/EOMI no droop CN 2-12 grossly intact +lt touch 5/5 BUE/BLE = Neuro Check Frequency: per routine Urinary Catheter in Place: No - Physician Discussed Patient with Dr.: Galvan Neurosurgery Physical Exam - Vitals, I&O, Labs I and O 10/21/17 10/22/17 10/23/17 05:59 05:59 05:59 Intake Total 1685 Balance 1685 Intake: Oral (ml) 250 IV Infused (ml) 1435 NS W/ 20 KCl/L 1,000 ml @ 1180 75 mls/hr IV CONT REBECCA Rx #:[id number] niCARdipine/NACL 200 ml @ 255 Titrate IV CONT REBECCA Rx#: [id number] Other: Number of Voids Bedpan 1 Incontinence 5 Vital Signs Temp Pulse Resp BP Pulse Ox 37.0 C 80 25 H 148/52 H 100 10/22/17 00:00 10/22/17 06:00 10/22/17 06:00 10/22/17 06:00 10/22/17 06:00 ICD10 Worksheet Patient Problems: Problems Problem Status Onset Elevated troponin Acute Headache Acute Intraventricular hemorrhage Acute Toe fracture, left Acute
[2017-10-22] MEDS: TIOTROPIUM INHALER 18 MCG/DOSE 5 DOSE/MDI IH SCH (08:38)
[2017-10-22] MEDS: LISINOPRIL 5 MG TAB PO SCH (10:14)
[2017-10-22] MEDS: ATENOLOL 25 MG TAB PO SCH (10:14)
[2017-10-22] MEDS: FLUoxetine 20 MG CAP PO SCH (10:14)
--- NOTE | 2017-10-22 17:13 | ASMTCMCOM ---
CM Note CM Note Notes: Patient very lethargic when this CM visited her this afternoon. Son reported that patient was a lot more talkative on admission than she has been during her hospital stay. He was concern that there might be more pressure on her brain. Another CT Scan was ordered. At this time, In-pt Rehab is following her but questions whether or not she would be able to do the 3hrs of rehab on Acute. Daughter interested in SNF's in the [facility]. Referrals sent to [facility] and [place]. Date Signed: 10/22/2017 05:13 PM Electronically Signed By:Adilene Flores LCSW
[2017-10-22] MEDS ORDERED: PROTOCOL POTASSIUM 1 DOSE MISC PRN (17:54)
[2017-10-22] MEDS: niCARdipine/NACL 200 ML IV SCH (18:22)
[2017-10-22] MEDS: POTASSIUM Cl (KCl) 10 MEQ in D5W 100 ML IV SCH ×4 (18:33→22:35)
[2017-10-22] MEDS ORDERED: MAGNESIUM HYDROXIDE 30 ML UDCUP PO PRN (18:44)
[2017-10-22] MEDS ORDERED: LACTULOSE 20 GM/30 ML UDCUP PO PRN (18:44)
[2017-10-22] MEDS ORDERED: POLYETHYLENE GLYCOL 3350 17 GM PKT PO PRN (18:44)
[2017-10-22] MEDS ORDERED: BISACODYL 10 MG SUPP PR PRN (18:44)
[2017-10-22] MEDS ORDERED: IOPAMIDOL (ISOVUE 370) 100 ML BTL IV ONE (19:51)
[2017-10-22 20:38] LABS: INR 2.01 (0.83-1.16); PROTIME(PATIENT) 22.8 SEC (12.0-15.0)
[2017-10-22] MEDS: AMITRIPTYLINE HCL 10 MG TAB PO SCH (21:16)
[2017-10-22] MEDS: SENNOSIDES/DOCUSATE SODIUM TAB PO SCH (21:16)
--- NOTE | 2017-10-22 21:26 | CPEKG ---
Heart Rate: 97 RR Interval: 619 P-R Interval: 196 QRSD Interval: 86 QT Interval: 368 QTC Interval: 468 P Eccles: 80 QRS Eccles: -64 T Wave Eccles: 77 EKG Severity - ABNORMAL ECG - EKG Impression: SINUS TACHYCARDIA EKG Impression: VENTRICULAR PREMATURE COMPLEX EKG Impression: NONSPECIFIC T ABNORMALITIES, LATERAL LEADS EKG Impression: Consider old inferior infarct Electronically Signed By: Narayan Bills 23-Oct-2017 07:27:02
[2017-10-23] MEDS: niCARdipine/NACL 200 ML IV SCH (00:59)
--- NOTE | 2017-10-23 02:21 | GCON ---
[f rep st] CONSULTATION DATE OF CONSULTATION: 10/22/2017 REASON FOR CONSULTATION: I was asked by Dr. Galvan to see the patient in regard to her somnolence. HISTORY OF PRESENT ILLNESS: This is a 77-year-old female with multiple sclerosis. She has had a PACK TRAIN DRIVER shunt since 1993 and fell on the 11th of this month. Imaging in the emergency department showed a new ventricular hemorrhage. She was seen by Neurosurgery, who has recommended conservative treatment. I am called because of somnolence that is worse today. When I am seeing her, she is quite tachypneic, says that she feels short of breath. Notably she was on Coumadin and had this held. Her INR 2 days ago was 3; there has been no recheck. She is denying any chest pain. She has not really been coughing. She is incontinent, which is new today. Neurosurgery initially does not feel as though this is a primary neurologic issue; however, shunt series has been ordered and to me seems nondiagnostic. PAST MEDICAL/SURGICAL HISTORY: 1. Atrial fibrillation, on Coumadin. 2. Multiple sclerosis. 3. COPD. 4. Hypertension. 5. Depression. 6. Lung adenocarcinoma MEDICATIONS: Please see medication reconciliation. ALLERGIES: No known drug allergies. SOCIAL HISTORY: She lives alone. FAMILY HISTORY: Reviewed and noncontributory. REVIEW OF SYSTEMS: A 10-point review of systems is conducted and is negative except per HPI. PHYSICAL EXAM: VITAL SIGNS: Blood pressure 154/65, heart rate 86, respiration rate 26, saturating 96% on 1 L, temperature 37.6. GENERAL: The patient is an uncomfortable-appearing female, quite tachypneic when I am visiting with her. HEENT: Shows her to be normocephalic, atraumatic. She has a PACK TRAIN DRIVER shunt in place. CARDIOVASCULAR: Shows her to have an irregularly irregular rhythm. She has a 2/6 systolic murmur. PULMONARY: Shows her to be clear to auscultation bilaterally. She is quite tachypneic. ABDOMEN: Soft. She is mildly distended in the right side. SKIN: Shows no rash. : Shows no [place]. NEUROLOGIC: Shows her to be alert and oriented x3. She has decreased motor in her left leg, which nursing tells me has been the case since she was admitted to the hospital. PSYCHIATRIC: Difficult to obtain, though she appears to be interacting appropriately. LABORATORY DATA: White count is 12.9. INR is 3. Potassium is 3.0. IMAGING DATA: 1. I reviewed all of her imaging. 2. I discussed this with Wilfrid Comer. 3. I personally reviewed and interpreted her EKG. It is a poor tracing overall. Shows sinus rhythm. There is nothing acute that I appreciate here. IMPRESSION/PLAN: 1. Somnolence: Differential includes cardiac, neurologic, infectious, pulmonary. Given her uncomfortable appearance and significant decline, I feel as though a thorough workup is in order. I have ordered blood cultures, urinalysis, EKG and troponin, CT angiogram and ABG given her tachypnea. Will follow up on all this. 2. Ventricular hematoma: Shunt series has been ordered to assess for patency. It is unclear to me whether the shunt is patent or in the right position. Will defer to Neurosurgery on this. 3. Hypertension: Continue her antihypertensives. 4. Atrial fibrillation: Coumadin has been held. Will recheck her INR. 5. Toe fracture: She is currently in a boot. 6. Questionable lung cancer on her CT scan, as well as Mycobacterium avium- intracellulare on her CT scan: Repeat CT angiography will be performed this evening. 7. Multiple sclerosis. 8. Left leg weakness: I am told that this is chronic since her admission. Should just reassess this tomorrow. /[id number]/MODL MTDD
[2017-10-23] MEDS: POTASSIUM Cl (KCl) 10 MEQ in D5W 100 ML IV SCH ×3 (02:33→04:42)
--- NOTE | 2017-10-23 07:45 | NEUSURGPN ---
Assessment/Plan: Assessment: 77 yo female that is s/p fall with IVH with hx of shunt placement- pt with more somnolent this am Plan: -s/p fall with IVH and hx of shunt placement in 1983: CT stable with noted larger ventricles on CT c/w prior imaging years ago-Dr Galvan aware and will follow up with this as an outpt -yesterday I was called from RN stating that the patient was more somnolent. CT head ordered and reviewed with Dr Esparza that shows continued/resolving IVH and enlarged but stable ventricles. I ordered some labs (CBC/CMP) which was reviewed. I spoke with Dr Galvan and we reviewed her CT scans that shows stable ventricles for 7 years. She has a shunt that was placed in 1983. Shunt series shows ?discontinuation of shunt at head but looking at a CT head in 12/24 this appears the same in the market basket maker view. Dr Galvan updated this am and he reviewed the imaging as well. -IM consulted to evaluate for any underlying medical issue that could explain this as well-appreciate their care -Dr Galvan agrees with ordering a high volume (30cc) LP with opening pressures to see if this changes her MS. RN to call me immediately after the LP to see if this changes her MS. We will also study her CSF as well-order placed with IR -RN updated and will call me after the LP is completed -PT/OT/ST-CPM -pt still on small amount of Cardene-hydralazine ordered -rehab consult pending -continuing to hold coumadin -follow neuro status -call with any questions or concerns -when IM sees pt this am RN will let IM know that Dr Galvan wants to speak with them about her case Subjective: No new complaints. Per RN pt is still very somnolent. Objective: Awake to verbal-opens eyes but somnolent, PERRLA/EOMI no droop +lt touch GEETA x 4 Neuro Check Frequency: per routine Urinary Catheter in Place: No - Physician Discussed Patient with : Mandy Patient Seen by : Mandy Neurosurgery Physical Exam - Vitals, I&O, Labs I and O 10/22/17 10/23/17 10/24/17 05:59 05:59 05:59 Intake Total 1685 2724 Output Total 1500 1825 Balance 1685 1224 -1825 Intake: Oral (ml) 250 300 IV Intake (ml) 939 IV Infused (ml) 1435 1485 NS W/ 20 KCl/L 1,000 ml @ 1180 1245 75 mls/hr IV CONT REBECCA Rx #:[id number] niCARdipine/NACL 200 ml @ 255 240 Titrate IV CONT REBECCA Rx#: [id number] Output: Urine (ml) 1500 1825 Bedpan 500 Catheter 1000 1825 Other: Output Comment Catheter straight cath Number of Voids Bedpan 1 Incontinence 5 2 Vital Signs Temp Pulse Resp BP Pulse Ox 37.2 C 104 H 28 H 120/55 L 99 10/23/17 05:00 10/23/17 05:00 10/23/17 05:00 10/23/17 05:00 10/23/17 05:00 Laboratory Results 10/22/17 16:31 10/23/17 05:50 ICD10 Worksheet Patient Problems: Problems Problem Status Onset Elevated troponin Acute Headache Acute Intraventricular hemorrhage Acute Toe fracture, left Acute
[2017-10-23] MEDS: ACETAMINOPHEN 650 MG SUPP PR PRN ×2 (08:26→17:36)
[2017-10-23] MEDS ORDERED: POTASSIUM Cl (KCl) 100 ML IV SCH (08:30)
[2017-10-23] MEDS: POTASSIUM Cl (KCl) 10 MEQ in NS 100 ML IV SCH ×5 (09:01→21:41)
[2017-10-23] MEDS: FLUoxetine 20 MG CAP PO SCH (09:02)
[2017-10-23] MEDS: SENNOSIDES/DOCUSATE SODIUM TAB PO SCH ×2 (09:02→20:40)
[2017-10-23] MEDS: LISINOPRIL 5 MG TAB PO SCH (09:02)
[2017-10-23] MEDS: ATENOLOL 25 MG TAB PO SCH (09:02)
[2017-10-23] MEDS: hydrALAZINE 20 MG/ML VIAL IVP PRN (09:03)
[2017-10-23] MEDS: TIOTROPIUM INHALER 18 MCG/DOSE 5 DOSE/MDI IH SCH (09:03)
[2017-10-23] MEDS ORDERED: ALTEPLASE 2 MG VIAL IVP PRN (09:52)
--- NOTE | 2017-10-23 09:52 | HOSPPROG ---
Hospitalist Progress Note Assessment/Plan: 77 yo F w longstanding hydrocephalus admitted w fall, ICH. now w somnolence somnolence: history, images and notes reviewed NPH certainly reasonable consideration and I agree w large volume LP not a UTI ABG OK see below re: pneumonia ?HCAP: chest images abnormal on basis of prior CA (interp by me) given fever and slight worsening of airpsace disease, will treat for HCAP start zosyn d/w dr hoover AF: clinically in sinus ICH: per neurosurgery dispo: ICU Subjective: per nursing, more somnolent this AM Objective: Vital Signs Temp Pulse Resp BP Pulse Ox 38.7 C H 87 29 H 116/57 L 100 10/23/17 09:00 10/23/17 09:00 10/23/17 09:00 10/23/17 09:00 10/23/17 09:00 Laboratory Results 10/22/17 16:31 10/23/17 05:50 10/22/17 10/23/17 10/24/17 05:59 05:59 05:59 Intake Total 1685 2724 Output Total 1500 1825 Balance 1685 1224 -1825 PT 22.8 SEC (12.0-15.0) H 10/22/17 20:15 INR 2.01 (0.83-1.16) H 10/22/17 20:15 - Physical Exam Constitutional: appears nourished, other (somnolent. not answering questions. arousable) Eyes: PERRL, anicteric sclera Ears, Nose, Mouth, Throat: moist mucous membranes, hearing normal Cardiovascular: regular rate and rhythym, no murmur, rub, or gallop Respiratory: no respiratory distress, no rales or rhonchi Gastrointestinal: normoactive bowel sounds, soft, non-tender abdomen Genitourinary: no bladder fullness, sumner in urethra Skin: warm, normal color Musculoskeletal: no muscle tenderness Neurologic: No AAOx3 Psychiatric: No interacting appropriately ICD10 Worksheet Patient Problems: Problems Problem Status Onset Elevated troponin Acute Headache Acute Intraventricular hemorrhage Acute Toe fracture, left Acute
[2017-10-23 10:46] LABS: INR 1.65 (0.83-1.16); PROTIME(PATIENT) 19.6 SEC (12.0-15.0)
[2017-10-23] MEDS ORDERED: PIPERACILLIN/TAZO 3.375 GM/DEX 50 ML IV SCH (12:00)
--- NOTE | 2017-10-23 12:32 | GHP ---
[f rep st] HISTORY AND PHYSICAL PULMONARY/CRITICAL CARE CONSULTATION DATE OF ADMISSION: 10/21/2017 REFERRING PHYSICIAN: Nii Galvan MD REASON FOR REFERRAL: Evaluation and management of pulmonary infiltrates. HISTORY OF PRESENT ILLNESS: The patient is a 77-year-old woman who lives independently, and apparent ly about 5 days ago, she started to feel somewhat unsteady and also had some nausea. She was admitte d on the after she called her son and told him that she had fallen and was unable to get up. In the emergency department, a CT scan of her head showed an area of intraventricular hemorrhage near p reviously placed ventriculoperitoneal shunt. She also had ventriculomegaly. These have apparently b een stable for years. Yesterday, she developed more somnolence. CT scan of the head showed no acute changes. PAST MEDICAL HISTORY: Significant for: 1. Multiple sclerosis with some chronic left-sided weakness. 2. Right hip surgery. 3. Lung cancer. This was diagnosed in last December in the left upper lobe with a needle biopsy. She was deemed not to be a good surgical candidate, so underwent radiation over the summer. She has not had any treatment since radiation in the summer. 4. Atrial fibrillation, on anticoagulation. 5. COPD. 6. Depression. 7. Hypertension. MEDICATIONS: At the time of admission include amitriptyline, atenolol, lisinopril, Prozac, Spiriva, and warfarin. ALLERGIES: None. SOCIAL HISTORY: The patient lives alone. The patient has a 60 pack-year history of smoking, stopped 30 years ago. She does not drink alcohol. FAMILY HISTORY: Unremarkable. REVIEW OF SYSTEMS: Unobtainable due to the patient's somnolence. PHYSICAL EXAMINATION: GENERAL: The patient is somnolent. She is minimally arousable, but does not respond to questions. VITAL SIGNS: Her blood pressure is 116/57 with a heart rate of 87. Her tempe rature is 38.7. Oxygen saturations are 100% on 2 L. HEENT: Normocephalic and atraumatic. No icter us. NECK: No adenopathy. Trachea is midline. CHEST: Clear to auscultation. CARDIAC: Irregularl y irregular without murmur. ABDOMEN: Soft, nontender. Bowel sounds are present. EXTREMITIES: No clubbing, cyanosis, or edema. NEURO: The patient is somnolent but arousable. She is moving both si selina of her body, but does not follow any commands. LABORATORY DATA: White blood count is 12.2, down from 15.3. Her chemistry group is unremarkable. H er troponin is 0.083. An arterial blood gas from last night shows a pH of 7.46 with a pO2 of 75, a C O2 of 39, and a bicarbonate of 28. An INR is 1.6, down from 3.0 at admission. Her urinalysis shows 10-15 red blood cells and 1-[address] blood cells[address] A [address] scan of the chest shows emphysema with a left upper lobe mass. There is some patchy infiltrate around this. This is new from a CT scan of the chest done in June 2017, but is unchanged when com pared to a CT scan from September 26, 2017. There are also some scattered small indeterminate nodules that are stable. Images reviewed by me. A CT scan of the head shows no acute changes yesterday comp ared to the prior CT scans. ASSESSMENT: 1. Intraventricular hemorrhage. This may be due to a fall. It also could have been spontaneous and contributed to the fall and somnolence. 2. Somnolence. This is likely related to the CT scan findings of intraventricular hemorrhage. It i s possible that the shunt is not functioning due to hemorrhage. Neurosurgery is following. 3. Pulmonary infiltrate. This is stable when compared to a CT scan done over 3 weeks earlier and is unlikely to represent an acute pneumonia. The patient was started on Zosyn, but I think this can be stopped. The changes on CT scan are likely due to radiation as well as the underlying tumor. 4. Fever. This could be due to her intracranial process. There is no pyuria on urinalysis, and I t hink the chest is unchanged so it is doubtful that this represents an acute pneumonia. Blood culture s have been drawn and are pending. 5. Atrial fibrillation. The patient is on Coumadin chronically. Given her recent fall, this probab ly should be stopped. RECOMMENDATIONS: A large volume LP is planned by Neurosurgery to determine if that improves her ment al status. The patient's fever will be followed for the time being off antibiotics. The patient's C oumadin has been held, and FFP will be given to lower the INR to allow for the lumbar puncture. /[id number]/MODL
[2017-10-23 12:54] LABS: INR 1.48 (0.83-1.16); PROTIME(PATIENT) 18.1 SEC (12.0-15.0)
[2017-10-23] MEDS ORDERED: LIDOCAINE 1% 300 MG/30 ML SDV ONE (14:05)
--- NOTE | 2017-10-23 17:19 | ECHO ---
[email or web address] [address] [address] Main: [phone] Fax: Transthoracic Echocardiogram Name: CHRISSY SANTILLAN MR#: [id number] Study Date: 10/23/2017 Study Time: 08:53 AM Date of : 1940 Age: 77 year(s) Height: 172.7 cm (68 in.) Weight: 63.5 kg (140 lb.) BSA: 1.76 m2 Gender: Female Examination: Echo Indication: New onset A-fib, COPD, HTN Image Quality: Contrast: Requested by: Catracho Guerrero BP: 140 mmHg/59 mmHg Heart Rate: Rhythm: Indication: New onset A-fib, COPD, HTN Procedure Staff Head Of Marketing: Lebron Werner [facility] Reading Physician: Zach Saxena Requesting Provider: Conclusions: Normal size left ventricle. No LV hypertrophy. Global hypercontractility of the left ventricle. EF is 74 %. No regional wall motion abnormality. Diastolic dysfunction is present. . Normal size right ventricle. The left atrium is normal in size. The right atrium is normal in size. Mild mitral valve leaflet calcification is present. Trivial mitral valve regurgitation. The aortic valve is tri-leaflet and functions normally. The tricuspid valve is normal in appearance and function. Trivial to mild tricuspid valve regurgitation. The pulmonary artery pressure is mildly increased. The aorta is normal. Measurements: Chambers Valvular Assessment AV/MV Valvular Assessment TV/PV Normal Normal Normal Name Value Range Name Value Range Name Value Range Ao Patsy (MM): 2.8 cm (2.2 cm-3.7 AV Vmax: 1.68 m/s (1 m/s-1.7 TR Vmax: 3.23 mm/s ( - ) cm) m/s) TR PGmax: 42 mmHg ( - ) IVSd (2D): 0.9 cm (0.6 cm-1.1 AV maxP mmHg ( - ) syst. PAP: 47 mmHg ( - ) cm) LVOT Vmax: 1.38 m/s (0.7 m/s-1.1 PV Vmax: 1.25 m/s (0.6 m/s-0.9 LVDd (2D): 4.0 cm (3.9 cm-5.3 m/s) m/s) cm) MV E Vmax: 1.14 m/s ( - ) PV PGmax: 6 mmHg ( - ) LVDs (2D): 2.3 cm (2.1 cm-4 MV A Vmax: 1.06 m/s ( - ) cm) MV E/A: 1.08 ( - ) LVPWd (2D): 0.9 cm ( - ) Patient: CHRISSY SANTILLAN Study Date: 10/23/2017 Page 1 of 2 08:53 AM LVEF (2D): 74 (>=54 %) Continued Measurements: Chambers Valvular Assessment AV/MV Valvular Assessment TV/PV Name Value Name Value Name Value LADs Lon.2 cm MV E/E' Septal: 22.50 CVP (est.): 5 mmHg LA Area: 7.9 cm2 MV E/E' Lateral: 24.90 Findings: Left Ventricle: Normal size left ventricle. No LV hypertrophy. Global hypercontractility of the left ventricle. EF is 74 %. No regional wall motion abnormality. Diastolic dysfunction is present. . Right Ventricle: Normal size right ventricle. Left Atrium: The left atrium is normal in size. Right Atrium: The right atrium is normal in size. Mitral Valve: Mild mitral valve leaflet calcification is present. Trivial mitral valve regurgitation. Aortic Valve: The aortic valve is tri-leaflet and functions normally. Tricuspid Valve: The tricuspid valve is normal in appearance and function. Trivial to mild tricuspid valve regurgitation. The pulmonary artery pressure is mildly increased. Pulmonic Valve: Pulmonary valve not well visualized. Aorta: The aorta is normal. Pericardium: No pericardial effusion. Exam Comments: Pectus Excavatum. (No Signature Object) Patient: CHRISSY SANTILLAN Study Date: 10/23/2017 Page 2 of 2 08:53 AM [id number]
[2017-10-23] MEDS: NS W/ 20 KCl/L 1,000 ML IV SCH (17:37)
[2017-10-23] MEDS ORDERED: POTASSIUM Cl (KCl) 50 ML IV SCH (19:00)
[2017-10-23] MEDS ORDERED: POTASSIUM Cl (KCl) 10 MEQ in D5W 50 ML IV SCH (19:30)
[2017-10-23] MEDS: AMITRIPTYLINE HCL 10 MG TAB PO SCH (20:40)
[2017-10-24] MEDS: ACETAMINOPHEN 650 MG SUPP PR PRN (00:03)
[2017-10-24] MEDS: hydrALAZINE 20 MG/ML VIAL IVP PRN ×4 (00:13→18:03)
--- NOTE | 2017-10-24 07:08 | NEUSURGPN ---
Assessment/Plan: Assessment: 77 yo female that is s/p fall with IVH with hx of shunt placement- pt with more somnolent this am Plan: -s/p fall with IVH and hx of shunt placement in 1983: CT stable with noted larger ventricles on CT c/w prior imaging years ago-Dr Mandy logan and this was present from imaging for the last 6 yrs -2 days ago I was called from RN stating that the patient was more somnolent. CT head ordered and reviewed with Dr Esparza that shows continued/resolving IVH and enlarged but stable ventricles. I ordered some labs (CBC/CMP) which was reviewed. I spoke with Dr Galvan and we reviewed her CT scans that shows stable ventricles for 7 years. She has a shunt that was placed in 1980. Shunt series shows ?discontinuation of shunt at head but looking at a CT head in 12/24 this appears the same in the hand tennis ball coverer view. Dr Galvan updated and he reviewed the imaging as well. -Pt has had temps. We sent her for CSF studies and to get an opening pressure yesterday -opening pressure was 35. CSf studies reviewed and concerning for meningitis. I spoke with Dr Owens who will see the patient as well. We will start some abx of cefipme and vanco. I will contact family. As of yesterday the family doesnt want any surgery or heroic measures but I spoke with the daughter yesterday morning and she was ok with abx should the CSF studies warrant this treatment. Naturally we would want to remove the shunt but will see if she responds to abx treatments. -ID to see (Dr Owens) -Dr Galvan updated -IM on board -RN updated -PT/OT/ST-CPM -pt still on small amount of Cardene-hydralazine ordered -rehab consult cancelled and pt more likely to go to SNF -continuing to hold coumadin -follow neuro status -call with any questions or concerns Subjective: Awake to verbal. Somnolence better. No new events overnight. Objective: Awake to verbal-opens eyes less somnolent, PERRLA/EOMI no droop follows commands +lt touch GEETA x 4 Neuro Check Frequency: per routine Urinary Catheter in Place: No Catheter Insertion Date: 10/23/17 - Physician Discussed Patient with Dr.: Galvan Patient Seen by : [facility] Physical Exam - Vitals, I&O, Labs I and O 10/23/17 10/24/17 10/25/17 05:59 05:59 05:59 Intake Total 2724 1521 Output Total 1500 4725 Balance 1224 -3204 Weight 65.9 kg Intake: Oral (ml) 300 IV Intake (ml) 939 506 IV Infused (ml) 1485 1015 NS W/ 20 KCl/L 1,000 ml @ 1245 990 75 mls/hr IV CONT REBECCA Rx #:[id number] niCARdipine/NACL 200 ml @ 240 25 Titrate IV CONT REBECCA Rx#: [id number] Output: Urine (ml) 1500 4725 Bedpan 500 Catheter 1000 4725 Other: Output Comment Catheter straight cath Number of Voids Incontinence 2 Microbiology 10/23/17 16:25 Gram Stain - Final Cerebral Spinal Fluid Vital Signs Temp Pulse Resp BP Pulse Ox 38 C 110 H 31 H 154/74 H 98 10/24/17 06:00 10/24/17 06:00 10/24/17 06:00 10/24/17 06:29 10/24/17 06:00 Laboratory Results 10/22/17 16:31 10/24/17 04:50 ICD10 Worksheet Patient Problems: Problems Problem Status Onset Elevated troponin Acute Headache Acute Intraventricular hemorrhage Acute Toe fracture, left Acute
[2017-10-24] MEDS ORDERED: VANCOMYCIN HCL/NORMAL SALINE 250 ML IV SCH (07:30)
[2017-10-24] MEDS ORDERED: CEFEPIME HCL 2 GM in STERILE WATER INJ 12.5 ML IV SCH (07:45)
[2017-10-24] MEDS: ATENOLOL 25 MG TAB PO SCH (08:00)
[2017-10-24] MEDS: LISINOPRIL 5 MG TAB PO SCH (08:00)
[2017-10-24] MEDS: FLUoxetine 20 MG CAP PO SCH (08:03)
[2017-10-24] MEDS: SENNOSIDES/DOCUSATE SODIUM TAB PO SCH ×2 (08:03→22:50)
[2017-10-24] MEDS: TIOTROPIUM INHALER 18 MCG/DOSE 5 DOSE/MDI IH SCH (08:04)
[2017-10-24] MEDS ORDERED: POTASSIUM Cl (KCl) 50 ML IV ONE ×2 (08:09→21:00)
[2017-10-24 08:13] LABS: PLATELET COUNT 257 10^3/uL (150-400)
[2017-10-24] MEDS ORDERED: POTASSIUM Cl (KCl) 100 ML IV ONE (08:15)
--- NOTE | 2017-10-24 09:48 | PDINTPN ---
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 CSF evaluation showed cloudy, bloody fluid with 137,965 RBC and 671 WBC (46% PMN), but no roganisms on GS and culture NTD. Opening pressure was reported at 35 and TP 494. Started empiric cefepime and vanco with ID consult pending. Workup also included chest CT given history of lung cancer treated with XRT. CT revealed infiltrates that were thought to be new 09/26/17, but unchanged on admission. * IVH s/p fall- no intervention at the moment, but may need to remove VPS depending on outcome of workup/ID consult. Mental status improving though still blunter per RN * RODO infiltrate/adenocarcinoma- Iagree that the infiltrate is new compared to 06/2017,but stable compared to 09/26/17. This is more likely treatment related change (radiation pneumonitis?) rather than acute PNA. If symptoms should start to develop, could look at procalcitonin, but I favor observation for this. Her WBC is down to 10 today. * COPD- stable on spiriva alone for now. Could get albuterol PRN Subjective: No complaints but minimally verbal Objective: Vital Signs Temp Pulse Resp BP Pulse Ox 38.1 C 100 26 H 136/64 H 97 10/24/17 08:00 10/24/17 08:00 10/24/17 08:00 10/24/17 08:00 10/24/17 08:00 Microbiology 10/23/17 16:25 Gram Stain - Final Cerebral Spinal Fluid Laboratory Results 10/24/17 07:45 10/24/17 04:50 10/23/17 10/24/17 10/25/17 05:59 05:59 05:59 Intake Total 2724 1521 Output Total 1500 4725 Balance 1224 -3204 PT 18.1 SEC (12.0-15.0) H 10/23/17 12:30 INR 1.48 (0.83-1.16) H 10/23/17 12:30 Physical Exam - Physical Exam General Appearance: no apparent distress, other (minimally verbal but awake and answwers questions appropriately. ) EENT: PERRL/EOMI Neck: supple Respiratory: lungs clear, decreased breath sounds, No respiratory distress, No accessory muscle use Cardiac/Chest: regular rate, rhythm, No edema Abdomen: non-tender, soft, No distended Skin: normal color, warm/dry Lymphatic: no adenopathy Extremities: No pedal edema Neuro/Psych: alert, normal mood/affect, cognition abnormalities ICD10 Worksheet Patient Problems: Problems Problem Status Onset Elevated troponin Acute Headache Acute Intraventricular hemorrhage Acute Toe fracture, left Acute
--- NOTE | 2017-10-24 10:49 | PCMIDPN ---
Assessment/Plan: Assessment: Plan: Objective: Vital Signs Temp Pulse Resp BP Pulse Ox 38.5 C H 85 31 H 141/58 H 97 10/24/17 10:00 10/24/17 10:00 10/24/17 10:00 10/24/17 10:00 10/24/17 10:00 Microbiology 10/23/17 16:25 Gram Stain - Final Cerebral Spinal Fluid Laboratory Results 10/24/17 07:45 10/24/17 04:50 10/23/17 10/24/17 10/25/17 05:59 05:59 05:59 Intake Total 5365 1520 Output Total 1500 4725 Balance 1224 -3204 ICD10 Worksheet Patient Problems: Problems Problem Status Onset Elevated troponin Acute Headache Acute Intraventricular hemorrhage Acute Toe fracture, left Acute
[2017-10-24] MEDS: ACETAMINOPHEN 325 MG TAB PO PRN ×2 (12:22→17:59)
--- NOTE | 2017-10-24 13:56 | HOSPPROG ---
Hospitalist Progress Note Assessment/Plan: 77 yo F w longstanding hydrocephalus admitted w fall, ICH. 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 ICH: per neurosurgery dispo: ICU Subjective: case discussed w ken melchor and terese Objective: Vital Signs Temp Pulse Resp BP Pulse Ox 38.9 C H 84 31 H 162/69 H 96 10/24/17 12:00 10/24/17 12:00 10/24/17 12:00 10/24/17 12:00 10/24/17 12:00 Microbiology 10/23/17 16:25 Gram Stain - Final Cerebral Spinal Fluid Laboratory Results 10/24/17 07:45 10/24/17 04:50 10/23/17 10/24/17 10/25/17 05:59 05:59 05:59 Intake Total 2724 1521 Output Total 1500 4725 1300 Balance 1224 -3204 -1300 PT 18.1 SEC (12.0-15.0) H 10/23/17 12:30 INR 1.48 (0.83-1.16) H 10/23/17 12:30 - Physical Exam Constitutional: no apparent distress, other (more alter today) Eyes: anicteric sclera Cardiovascular: regular rate and rhythym, no murmur, rub, or gallop Respiratory: no respiratory distress, no rales or rhonchi Gastrointestinal: normoactive bowel sounds, soft, non-tender abdomen Genitourinary: no bladder fullness, sumner in urethra Skin: warm, normal color Musculoskeletal: full muscle strength, no muscle tenderness ICD10 Worksheet Patient Problems: Problems Problem Status Onset Elevated troponin Acute Headache Acute Intraventricular hemorrhage Acute Toe fracture, left Acute
--- NOTE | 2017-10-24 15:50 | ASMTCMCOM ---
CM Note CM Note Notes: Patient continues to need ICU care. There is a concern for Meningitis. Patient is currently getting ABX; cefipme and vanco. Patient has been more somnolent. Currently PT/OT still recommending inpatient rehab. CM will follow. Date Signed: 10/24/2017 03:49 PM Electronically Signed By:Anay Grajeda LCSW
[2017-10-24] MEDS: CEFEPIME HCL 2 GM in STERILE WATER INJ 12.5 ML IV SCH (20:39)
[2017-10-24] MEDS: AMITRIPTYLINE HCL 10 MG TAB PO SCH (20:40)
--- NOTE | 2017-10-24 21:25 | GCON ---
[f rep st] CONSULTATION INFECTIOUS DISEASE CONSULTATION REFERRING PHYSICIAN: Rk Comer PA-C REASON FOR REFERRAL: Pleocytosis. HISTORY OF PRESENT ILLNESS: Patient is a 77-year-old female, who has a longstanding history of a toni tricular peritoneal shunt. This was apparently placed decades ago for hydrocephalus. Unclear whethe r this was normal-pressure hydrocephalus or obstructive hydrocephalus. The patient also has a histor y of multiple sclerosis and a recent diagnosis of lung cancer. 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 She has had multiple falls at home recently, inc luding a fall this morning. The patient contacted her son this morning after she fell and asked him to come help her. To her son she seemed confused and had some nausea and vomited. She was taken to urgent care and a head CT was performed that demonstrated a right intraventricular hemorrhage. She w as taken to the emergency room and evaluated by Trauma. No major injuries were found. She was admit shashi to the ICU. A sample of spinal fluid from her shunt was taken. Those results returned showing s ignificant amounts of white cells and red cells. The patient also demonstrated fevers starting on morning of 10/23/2017 up to 39 degree Celsius. Vancomycin and cefepime were started empirically. We are consulted to help evaluate the data for the presence or absence of infection. PAST MEDICAL HISTORY: 1. Multiple sclerosis. 2. Lung cancer. 3. Mesentery artery thrombosis. 4. Hydrocephalus. 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 ANTIBIOTICS: 1. Vancomycin. 2. Cefepime. ALLERGIES: No known drug allergies. SOCIAL HISTORY: The patient lives in independent living at [place]. No tobacco, alcohol, or drug us e noted. FAMILY HISTORY: Reviewed, but noncontributory. REVIEW OF SYSTEMS: Other than that detailed above in history of present illness, 10-system review wa s obtained through interviews from the chart and family. PHYSICAL EXAMINATION: VITAL SIGNS: Temperature maximum 38.9, temperature current is 38.9, heart rat e is 84, respiratory rate is 31, blood pressure is 162/69. GENERAL: The patient is a well-formed, w ell-nourished, elderly female, in no acute distress. She is not toxic in appearance. She is alert. Unclear orientation. Patient is nonverbal. She is tracking of my presence in the room and opening her eyes to questions. HEENT: Normocephalic for age. The patient has bruises in multiple places ov er her body. No scleral icterus. No drainage from the nares. Eyes: Lids and conjunctivae within n ormal limits. Pupils are equal and round bilaterally. NECK: Supple. No meningismus. LUNGS: Bella r to auscultation bilaterally with good effort. HEART: Regular rate and rhythm. No significant per ipheral edema. SKIN: Warm and dry to the touch. Multiple ecchymosis. Otherwise, no rash or lesion . MUSCULOSKELETAL: No muscle belly tenderness is noted. No joint effusion, enlargement or arthriti s is noted. NEURO: Cranial nerves 2-12 seem to be intact. Peripheral sensation seems intact in ext remities. LABORATORY DATA: The patient has a CBC dated 10/24/2017, shows a white blood cell count of 10.5, hem oglobin 11.7, hematocrit of 36.4, and a platelet count of 257. Differential is left shifted with 90% segmented neutrophils. Serum chemistries on 10/23/2017, show sodium 138, potassium 3.7, chloride 10 4, bicarbonate 24, BUN of 11, and creatinine 0.5. Cerebral spinal fluid obtained 10/23/2017, shows 6 71 white cells with 138,000 red cells per cubic mm. Differential on the white cell shows 46% neutrop hils, 35% lymphocytes and 19% monocytes. CSF glucose is 34, CSF total protein is 494. Nasal influen za PCR both A and B are negative. MICROBIOLOGIC DATA: Patient has blood cultures dated 10/22/2017, which are no growth to date. CSF c ulture and Gram stain dated 10/23/2017, shows no organisms on Gram stain and no growth at 24 hours. ASSESSMENT: Fever-I suspect the fever in this setting is likely secondary to bleed within the centra l nervous system. At this point, the cell counts from the spinal fluid are more indicative of the ra ed of red cells to white cells found in blood than they are with white cell predominance which is wh at she would typically see in a bacterial meningitis standpoint. The differential of the white cells present is also more consistent with a circulating population. The fevers are likely secondary to i rritation and response from blood breakdown. Patient is on vancomycin and cefepime empirically. My plan would be to maintain this for 48 hours. If there is nothing growing in CSF culture at 48 hours these can be discontinued. I suspect that there may actually be, given the increase in ventricle siz e on imaging, that the patient may have dysfunctional shunt. It is my understanding that the family is not wanting to do anything surgical or invasive for this issue. This complicates the patient's we ll being going forward I suspect. We will leave these decisions to the neurosurgery and the family. PLAN: 1. Continue both cefepime and vancomycin at present dose for now. 2. Re-evaluate at 48 hours and discontinue if no growth in spinal fluid culture. /[id number]/MODL
[2017-10-25] MEDS: HYDROCODONE/APAP 5/325 TAB PO PRN ×2 (00:05→13:32)
[2017-10-25] MEDS: NS W/ 20 KCl/L 1,000 ML IV SCH ×2 (04:25→18:45)
[2017-10-25] MEDS: niCARdipine/NACL 200 ML IV SCH (04:44)
[2017-10-25] MEDS: TIOTROPIUM INHALER 18 MCG/DOSE 5 DOSE/MDI IH SCH (08:15)
[2017-10-25] MEDS: FLUoxetine 20 MG CAP PO SCH (08:19)
[2017-10-25] MEDS: ACETAMINOPHEN 325 MG TAB PO PRN (08:19)
[2017-10-25] MEDS: ATENOLOL 25 MG TAB PO SCH (08:19)
[2017-10-25] MEDS: SENNOSIDES/DOCUSATE SODIUM TAB PO SCH ×2 (08:19→22:01)
[2017-10-25] MEDS: CEFEPIME HCL 2 GM in STERILE WATER INJ 12.5 ML IV SCH (08:21)
[2017-10-25] MEDS: LISINOPRIL 5 MG TAB PO SCH (08:21)
[2017-10-25] MEDS ORDERED: VANCOMYCIN HCL/NORMAL SALINE 250 ML IV SCH (08:30)
[2017-10-25] MEDS ORDERED: POTASSIUM Cl (KCl) 50 ML IV ONE (08:51)
[2017-10-25] MEDS ORDERED: POTASSIUM Cl (KCl) 20 MEQ in NS 50 ML IV ONE (09:00)
--- NOTE | 2017-10-25 11:31 | PCMIDPN ---
Assessment/Plan: Assessment: Interventricular bleed-CSF shows no growth in culture at this point. Will discontinue empiric vancomycin and ceftazidime. Plan: 1. Discontinue empiric antibiotics. 2. Will sign off at this point please call for future questions. 10/25/17 13:38 Subjective: Patient continues to be stable clinically over the last 24 hours. Ongoing fevers. Objective: Vancomycin # 2 Cefepime # 2 Vital Signs Temp Pulse Resp BP Pulse Ox 38.3 C 74 25 H 126/62 H 97 10/25/17 10:00 10/25/17 10:00 10/25/17 10:00 10/25/17 10:00 10/25/17 10:00 Microbiology 10/23/17 16:25 Gram Stain - Final Cerebral Spinal Fluid Laboratory Results 10/24/17 07:45 10/25/17 04:30 10/24/17 10/25/17 10/26/17 05:59 05:59 05:59 Intake Total 1521 2687 Output Total 4993 2475 Balance -3204 212 - Physical Exam General Appearance: WD/WN, alert, no apparent distress, non-toxic Neuro/Psych: alert, normal mood/affect ICD10 Worksheet Patient Problems: Problems Problem Status Onset Elevated troponin Acute Headache Acute Intraventricular hemorrhage Acute Toe fracture, left Acute
--- NOTE | 2017-10-25 11:40 | NEUSURGPN ---
Assessment/Plan: Assessment/Plan: Assessment: 77 yo female that is s/p fall with IVH with hx of shunt placement, now on abx for abnormal CSF studies concerning for meningitis. Plan: -s/p fall with IVH and hx of shunt placement in 1983: CT stable with noted larger ventricles on CT c/w prior imaging years ago-Dr Mandy logan and this was present from imaging for the last 6 yrs -3 days ago I was called from RN stating that the patient was more somnolent. CT head ordered and reviewed with Dr Esparza that shows continued/resolving IVH and enlarged but stable ventricles. I ordered some labs (CBC/CMP) which was reviewed. I spoke with Dr Galvan and we reviewed her CT scans that shows stable ventricles for 7 years. She has a shunt that was placed in 1980. Shunt series shows ?discontinuation of shunt at head but looking at a CT head in 12/24 this appears the same in the cherry dipper view. Dr Galvan updated and he reviewed the imaging as well. -Patient had CSF studies that were concerning for meningitis. Seen by ID as well. -Will start Cefipime and Vanco, and if cultures come back negative, can discontinue - Family doesn't want any surgery or heroic measures but we spoke with the daughter yesterday morning and she was ok with abx. - Naturally we would want to remove the shunt but will see if she responds to abx treatments first and have this discussion later with the family if warranted -IM on board -PT/OT/ST-CPM -continuing to hold coumadin -follow neuro status -call with any questions or concerns Subjective: Awake to verbal. States she feel "better" than yesterday. Objective: Awake to verbal-opens eyes less somnolent, PERRLA/EOMI no droop follows commands +lt touch GEETA x 4 Catheter Insertion Date: 10/23/17 - Physician Discussed Patient with : Mandy Neurosurgery Physical Exam - Vitals, I&O, Labs I and O 10/24/17 10/25/17 10/26/17 05:59 05:59 05:59 Intake Total 1521 2687 Output Total 9330 0725 Balance -3204 212 Weight 65.9 kg 65.3 kg Intake: Oral (ml) 900 IV Intake (ml) 506 IV Infused (ml) 1015 1787 NS W/ 20 KCl/L 1,000 ml @ 990 1754 75 mls/hr IV CONT REBECCA Rx #:[id number] niCARdipine/NACL 200 ml @ 25 33 Titrate IV CONT REBECCA Rx#: [id number] Output: Urine (ml) 5401 4807 Catheter 1723 4337 Other: Number of Stools Catheter 0 Microbiology 10/23/17 16:25 Gram Stain - Final Cerebral Spinal Fluid Vital Signs Temp Pulse Resp BP Pulse Ox 38.3 C 74 25 H 126/62 H 97 10/25/17 10:00 10/25/17 10:00 10/25/17 10:00 10/25/17 10:00 10/25/17 10:00 Laboratory Results 10/24/17 07:45 10/25/17 04:30 ICD10 Worksheet Patient Problems: Problems Problem Status Onset Elevated troponin Acute Headache Acute Intraventricular hemorrhage Acute Toe fracture, left Acute
--- NOTE | 2017-10-25 13:30 | HOSPPROG ---
Hospitalist Progress Note Assessment/Plan: 77 yo F w longstanding hydrocephalus admitted w fall, ICH. 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 ICH: per neurosurgery plan of care: family leaning towards a more palliative approach dispo: ICU Subjective: 35 minutes spent at bedside discussing plan of care w daughter, pall care drafter chief design Objective: Vital Signs Temp Pulse Resp BP Pulse Ox 38.3 C 74 25 H 126/62 H 97 10/25/17 10:00 10/25/17 10:00 10/25/17 10:00 10/25/17 10:00 10/25/17 10:00 Microbiology 10/23/17 16:25 Gram Stain - Final Cerebral Spinal Fluid Laboratory Results 10/24/17 07:45 10/25/17 04:30 10/24/17 10/25/17 10/26/17 05:59 05:59 05:59 Intake Total 1521 2687 Output Total 4725 2475 Balance -3204 212 PT 18.1 SEC (12.0-15.0) H 10/23/17 12:30 INR 1.48 (0.83-1.16) H 10/23/17 12:30 - Physical Exam Constitutional: no apparent distress, other (somnolent. not participating in discussion) Eyes: PERRL Ears, Nose, Mouth, Throat: moist mucous membranes, hearing normal Cardiovascular: regular rate and rhythym, no murmur, rub, or gallop Respiratory: no respiratory distress, no rales or rhonchi Gastrointestinal: normoactive bowel sounds, soft, non-tender abdomen Genitourinary: no bladder fullness, No sumner in urethra Skin: warm, normal color Musculoskeletal: full muscle strength, no muscle tenderness Neurologic: AAOx3 ICD10 Worksheet Patient Problems: Problems Problem Status Onset Elevated troponin Acute Headache Acute Intraventricular hemorrhage Acute Toe fracture, left Acute
--- NOTE | 2017-10-25 15:05 | ASMTCMCOM ---
CM Note CM Note Notes: Met with patient's daughter, Padmaja as the family has decided they want their mom to be moved to SNF for meterman care. Padmaja was given several names of SNF's to go tour. She would like to have something in [place] as she will be the one to manage most of her mother's needs although her brother will be managing the finances. Padmaja will let us know her 2 top choices so we can then follow-up. The family had a palliative care consult today and they are interested in Hospice but want to set up the SNF placement first. They have used [facility] for other family members with positive results but are flexible. CM will follow. Date Signed: 10/25/2017 03:04 PM Electronically Signed By:Anay Grajeda LCSW
[2017-10-25] MEDS: hydrALAZINE 20 MG/ML VIAL IVP PRN (18:50)
[2017-10-25] MEDS: AMITRIPTYLINE HCL 10 MG TAB PO SCH (22:00)
[2017-10-26] MEDS: HYDROCODONE/APAP 5/325 TAB PO PRN ×2 (00:27→20:24)
[2017-10-26] MEDS: ACETAMINOPHEN 325 MG TAB PO PRN (05:47)
[2017-10-26] MEDS: NS W/ 20 KCl/L 1,000 ML IV SCH (08:27)
--- NOTE | 2017-10-26 09:08 | SOAPPROG ---
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 Objective: Vital Signs Temp Pulse Resp BP Pulse Ox 36.8 C 106 H 15 151/83 H 93 10/26/17 08:44 10/26/17 08:44 10/26/17 08:44 10/26/17 08:44 10/26/17 08:44 Microbiology 10/23/17 16:25 Gram Stain - Final Cerebral Spinal Fluid Laboratory Results 10/24/17 07:45 10/26/17 05:15 10/25/17 10/26/17 10/27/17 05:59 05:59 05:59 Intake Total 2687 2463 Output Total 2475 2300 Balance 212 163 PT 18.1 SEC (12.0-15.0) H 10/23/17 12:30 INR 1.48 (0.83-1.16) H 10/23/17 12:30 awake, alert oriented to month/year PERRL, no facial droop GEETA x 4 + light touch ICD10 Worksheet Patient Problems: Problems Problem Status Onset Elevated troponin Acute Headache Acute Intraventricular hemorrhage Acute Toe fracture, left Acute
[2017-10-26] MEDS: hydrALAZINE 20 MG/ML VIAL IVP PRN (10:07)
[2017-10-26] MEDS: ATENOLOL 25 MG TAB PO SCH (10:10)
[2017-10-26] MEDS: FLUoxetine 20 MG CAP PO SCH (10:11)
[2017-10-26] MEDS: LISINOPRIL 5 MG TAB PO SCH (10:11)
[2017-10-26] MEDS: SENNOSIDES/DOCUSATE SODIUM TAB PO SCH ×2 (10:20→20:24)
--- NOTE | 2017-10-26 13:27 | HOSPPROG ---
Hospitalist Progress Note Assessment/Plan: 77 yo F w longstanding hydrocephalus admitted w fall, ICH. 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 ICH: per neurosurgery plan of care: family leaning towards a more palliative approach she is DNR suspect she will improve slowly over time but may not achieve her pre hospitalization baseline dispo: inpt Subjective: more alert- able to say she has pain "in one spot" Objective: Vital Signs Temp Pulse Resp BP Pulse Ox 36.8 C 83 20 151/70 H 92 10/26/17 08:44 10/26/17 11:18 10/26/17 11:18 10/26/17 11:18 10/26/17 11:18 Microbiology 10/23/17 16:25 Gram Stain - Final Cerebral Spinal Fluid CSF Culture - Final Laboratory Results 10/24/17 07:45 10/26/17 05:15 10/25/17 10/26/17 10/27/17 05:59 05:59 05:59 Intake Total 2687 2463 Output Total 2475 2300 Balance 212 163 PT 18.1 SEC (12.0-15.0) H 10/23/17 12:30 INR 1.48 (0.83-1.16) H 10/23/17 12:30 - Physical Exam Constitutional: no apparent distress, appears nourished Eyes: PERRL, anicteric sclera Ears, Nose, Mouth, Throat: moist mucous membranes, hearing normal Cardiovascular: regular rate and rhythym, No tachycardia Respiratory: no respiratory distress, no rales or rhonchi Gastrointestinal: normoactive bowel sounds, soft, non-tender abdomen Genitourinary: no bladder fullness, No sumner in urethra Skin: warm Musculoskeletal: No full muscle strength Neurologic: No AAOx3 ICD10 Worksheet Patient Problems: Problems Problem Status Onset Elevated troponin Acute Headache Acute Intraventricular hemorrhage Acute Toe fracture, left Acute
--- NOTE | 2017-10-26 15:57 | ASMTCMCOM ---
CM Note CM Note Notes: Met with pt's dtr and son-in-law today. They stated have been looking at LTC facilities in [place]. [facility] did not have a room and they are considering [facility]. At the time, the conversation cenetred on pt having a LTC placement with hospice. Later in PM, [facility] [place] called to say that dtr had been back in and was now looking at a rehab stay. Unfortunately, PT/OT notes indicate pt is comfort care only and therefore [facility] cannot accept for rehab unless PT/OT get involved again and find that pt has rehab needs. Plan is to discuss with dtr tomorrow. Date Signed: 10/26/2017 03:56 PM Electronically Signed By:Brook Price LCSW
[2017-10-26] MEDS: AMITRIPTYLINE HCL 10 MG TAB PO SCH (20:24)
[2017-10-27] MEDS: FLUoxetine 20 MG CAP PO SCH (09:01)
[2017-10-27] MEDS: ATENOLOL 25 MG TAB PO SCH (09:01)
[2017-10-27] MEDS: LISINOPRIL 5 MG TAB PO SCH (09:10)
[2017-10-27] MEDS: SENNOSIDES/DOCUSATE SODIUM TAB PO SCH ×2 (09:11→20:26)
--- NOTE | 2017-10-27 09:16 | SOAPPROG ---
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 NO weakness. Objective: Vital Signs Temp Pulse Resp BP Pulse Ox 37.3 C 102 H 33 H 125/77 H 91 L 10/27/17 09:02 10/27/17 09:02 10/27/17 09:02 10/27/17 09:10 10/27/17 09:02 Microbiology 10/23/17 16:25 Gram Stain - Final Cerebral Spinal Fluid CSF Culture - Final Laboratory Results 10/24/17 07:45 10/26/17 05:15 10/26/17 10/27/17 10/28/17 05:59 05:59 05:59 Intake Total 2463 1184 Output Total 2300 1550 Balance 163 -366 PT 18.1 SEC (12.0-15.0) H 10/23/17 12:30 INR 1.48 (0.83-1.16) H 10/23/17 12:30 Awake, alert, confused on location, oriented to month/year PERRL, EOMI no facial droop GEETA x 4 + light touch ICD10 Worksheet Patient Problems: Problems Problem Status Onset Elevated troponin Acute Headache Acute Intraventricular hemorrhage Acute Toe fracture, left Acute
[2017-10-27] MEDS: ACETAMINOPHEN 325 MG TAB PO PRN (10:12)
--- NOTE | 2017-10-27 12:48 | HOSPPROG ---
Hospitalist Progress Note Assessment/Plan: 77 yo F w longstanding hydrocephalus admitted w fall, ICH. now w somnolence somnolence: I believe she has hypoactive delirium that is slowly improving continue current management dc IV pain meds ?HCAP: chest imaging reviewed and not really unchanged from 09/26 so hold on abx fever: possibly 2/2 ICH concern for meningitis noted although csf most c/w blood flu swab neg AF: clinically in sinus folewy: remove today ICH: per neurosurgery plan of care: family leaning towards a more palliative approach she is DNR suspect she will improve slowly over time but may not achieve her pre hospitalization baseline 10/27: she is more alert today. suspect she will continue to improve slowly over time PT OT evals today dispo: inpt Subjective: more alert Objective: Vital Signs Temp Pulse Resp BP Pulse Ox 37.0 C 86 32 H 129/73 H 93 10/27/17 10:46 10/27/17 10:00 10/27/17 10:00 10/27/17 10:00 10/27/17 10:00 Microbiology 10/23/17 16:25 Gram Stain - Final Cerebral Spinal Fluid CSF Culture - Final Laboratory Results 10/24/17 07:45 10/26/17 05:15 10/26/17 10/27/17 10/28/17 05:59 05:59 05:59 Intake Total 2463 1184 200 Output Total 2300 1550 Balance 163 -366 200 PT 18.1 SEC (12.0-15.0) H 10/23/17 12:30 INR 1.48 (0.83-1.16) H 10/23/17 12:30 - Physical Exam Constitutional: no apparent distress, appears nourished Eyes: PERRL, anicteric sclera Ears, Nose, Mouth, Throat: moist mucous membranes, hearing normal Cardiovascular: regular rate and rhythym, no murmur, rub, or gallop Respiratory: no respiratory distress, no rales or rhonchi Gastrointestinal: normoactive bowel sounds, soft, non-tender abdomen Genitourinary: no bladder fullness, sumner in urethra Skin: warm, normal color Musculoskeletal: full muscle strength, no muscle tenderness Neurologic: AAOx3 ICD10 Worksheet Patient Problems: Problems Problem Status Onset Elevated troponin Acute Headache Acute Intraventricular hemorrhage Acute Toe fracture, left Acute
--- NOTE | 2017-10-27 13:55 | ASMTCMCOM ---
CM Note CM Note Notes: Discussed SNF rehab vs LTC bed with Dr Rhodes. Dr Rhodes feels that pt will continue to improve and rehab stay is reasonable. PT/OT will be reordered. LM for [facility]. They will need new therapy notes faxed when they are ready. CM to follow. Date Signed: 10/27/2017 01:54 PM Electronically Signed By:Brook Price LCSW
[2017-10-27] MEDS: AMITRIPTYLINE HCL 10 MG TAB PO SCH (20:27)
--- NOTE | 2017-10-28 06:23 | NEUSURGPN ---
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 Follows commands. No new events or concerns. Objective: Awake, alert, confused on location, oriented to month/year PERRL, EOMI no facial droop GEETA x 4 + light touch Neuro Check Frequency: per routine Urinary Catheter in Place: No Catheter Insertion Date: 10/23/17 - Physician Discussed Patient with : Mandy Neurosurgery Physical Exam - Vitals, I&O, Labs I and O 10/27/17 10/28/17 10/29/17 05:59 05:59 05:59 Intake Total 1184 520 Output Total 1550 350 Balance -366 170 Intake: Oral (ml) 400 520 IV Infused (ml) 784 NS W/ 20 KCl/L 1,000 ml @ 784 75 mls/hr IV CONT REBECCA Rx #:[id number] Output: Urine (ml) 1550 350 Bedpan 0 Catheter 1550 350 Other: Intake Quantity No Sufficient Number of Voids Catheter 1 Bladder Scan Volume (ml) Bedpan 20 Catheter 239 Vital Signs Temp Pulse Resp BP Pulse Ox 36.9 C 81 16 111/63 93 10/28/17 04:00 10/28/17 04:00 10/28/17 04:00 10/28/17 04:00 10/28/17 04:00 Laboratory Results 10/24/17 07:45 10/26/17 05:15 ICD10 Worksheet Patient Problems: Problems Problem Status Onset Elevated troponin Acute Headache Acute Intraventricular hemorrhage Acute Toe fracture, left Acute
[2017-10-28] MEDS: ATENOLOL 25 MG TAB PO SCH (08:47)
[2017-10-28] MEDS: FLUoxetine 20 MG CAP PO SCH (08:48)
[2017-10-28] MEDS: LISINOPRIL 5 MG TAB PO SCH (08:50)
[2017-10-28] MEDS: SENNOSIDES/DOCUSATE SODIUM TAB PO SCH ×2 (08:58→21:04)
--- NOTE | 2017-10-28 11:26 | HOSPPROG ---
Hospitalist Progress Note Assessment/Plan: 77 yo F w longstanding hydrocephalus admitted w fall, ICH. now w somnolence somnolence: continues to improve ?HCAP: chest imaging reviewed and not really unchanged from 09/26 so hold on abx fever: possibly 2/2 ICH concern for meningitis noted although csf most c/w blood flu swab neg AF: clinically in sinus folewy: remove today ICH: per neurosurgery plan of care: family leaning towards a more palliative approach she is DNR suspect she will improve slowly over time but may not achieve her pre hospitalization baseline 10/27: she is more alert today. suspect she will continue to improve slowly over time PT OT evals today 10/28: more alert today rec dc to snf dispo: inpt Subjective: more alert Objective: Vital Signs Temp Pulse Resp BP Pulse Ox 36.1 C 82 17 111/63 94 10/28/17 08:00 10/28/17 08:00 10/28/17 08:00 10/28/17 08:47 10/28/17 08:00 Microbiology 10/22/17 20:10 Blood Culture - Final Blood 10/22/17 20:10 Blood Culture - Final Blood Laboratory Results 10/24/17 07:45 10/26/17 05:15 10/27/17 10/28/17 10/29/17 05:59 05:59 05:59 Intake Total 1184 520 Output Total 1550 350 Balance -366 170 PT 18.1 SEC (12.0-15.0) H 10/23/17 12:30 INR 1.48 (0.83-1.16) H 10/23/17 12:30 - Physical Exam Constitutional: no apparent distress, other (answers questions. this is the best she has been) Eyes: PERRL, anicteric sclera Ears, Nose, Mouth, Throat: moist mucous membranes, hearing normal Cardiovascular: regular rate and rhythym, no murmur, rub, or gallop Respiratory: no respiratory distress, no rales or rhonchi Gastrointestinal: normoactive bowel sounds, soft, non-tender abdomen Genitourinary: no bladder fullness, No sumner in urethra Skin: warm, normal color Musculoskeletal: No full muscle strength Neurologic: No AAOx3 ICD10 Worksheet Patient Problems: Problems Problem Status Onset Elevated troponin Acute Headache Acute Intraventricular hemorrhage Acute Toe fracture, left Acute
[2017-10-28] MEDS: ACETAMINOPHEN 325 MG TAB PO PRN (12:57)
--- NOTE | 2017-10-28 13:47 | PDIAF ---
- Diagnosis Diagnosis: ICH Code Status: Do Not Resuscitate - Medication Management Discharge Medications: Medications to Continue on Transfer Atenolol [Tenormin 25 mg (*)] 25 mg PO DAILY 02/02/10 [Last Taken 10/19/17] FLUoxetine [Prozac 20 MG (*)] 20 mg PO DAILY 02/02/10 [Last Taken 10/19/17] Lisinopril [Zestril 5 mg (*)] 2.5 mg PO DAILY 02/02/10 [Last Taken 10/19/17] Tiotropium Inhaler [Spiriva Handihaler] 18 mcg IH DAILY 04/30/14 [Last Taken 06/26] Amitriptyline HCl [Elavil 10 mg (*)] 10 mg PO DAILY 12/24/16 [Last Taken ] Polyethylene Glycol 3350 [Miralax 17 gm (*)] 17 gm PO DAILY PRN pkt 10/28/17 [ Last Taken Unknown] Discharge Medications: Refer to the Discharge Home Medication list for PRN reason. - Orders Services needed: Registered Nurse, Certified Metalworker, Physical Therapy, Occupational Therapy, Speech Language Pathologist Isolation Type: None Diet Texture: Regular Texture Diet, Thin Liquids, Meds Whole w/Liquids - Follow Up Care Current Providers and Referrals: Carlton Badillo MD [Primary Care Provider] - As per Instructions
--- NOTE | 2017-10-28 14:09 | ASMTLACE ---
[facility] Length of stay for Answers: 7-13 days current admission Acuity / Level of Answers: Yes Care: Did the patient have an inpatient admission? Comorbidities - select Answers: Cerebrovascular disease all that apply (CVA, TIA, aneurysms, vasc ular dementia) History of falls Previous myocardial infarction Other Notes: Lung cancer, multiple sclerosis # of Emergency department Answers: 1-2 visits in the last 6 months Social determinants Answers: Mental health diagnosis (anxiety, depression, pers onality disorders, etc.) Score: 18 Date Signed: 10/28/2017 02:08 PM Electronically Signed By:JJ Oglesby
--- NOTE | 2017-10-28 15:29 | ASDISCHSUM ---
Discharge Information Plan Status:SNF Medically Cleared to Leave:10/27/2017 Discharge Date:10/27/2017 CM D/C Disposition:[facility] Facility ADT D/C Disposition: Projected Discharge Date:10/28/2017 11:00 AM Transportation at D/C:ALS/BLS Discharge Delay Reason: Follow-Up Date:10/28/2017 11:00 AM Discharge Slot: Final Diagnosis:Fall: Intraventricular Hemorrhage Placement Information Referral Type:*Correction/SNF Referral ID:[id number] Provider Name:[facility]//[facility] Address 1:[address] [place] [address] Address 2: City:[place] Selection Factors: State:[place] Referral Type:[facility] Referral ID:[id number] Provider Name: Address 1: Phone Number: Address 2: Fax Number: City: Selection Factors: State: Patient Contact Information Contact Name:ARACELI Relationship:Daughter Address: Work Phone: City: [facility] Phone: State/Zip Code: Email: Financial Information Financial Class:Medicare Primary Plan Desc:MEDICARE INPATIENT Primary Plan Number:[id number] Secondary Plan Desc:LILLY Secondary Plan Number:[id number] Assessment Information BC CM Progress Note CM Note CM Note Notes: 77 year old female admitted for intraventricular Hemorrhage assoc. with shunt. She has a hx of MS and a new dx of lung CA. Therapies to eval. Patient lives at [facility] and her son lives in [place]. XCM to follow Date Signed: 10/21/2017 09:40 AM Electronically Signed By:Adilene Flores LCSW [facility] Length of stay for Answers: 7-13 days current admission Acuity / Level of Answers: Yes Care: Did the patient have an inpatient admission? Comorbidities - select Answers: Cerebrovascular disease all that apply (CVA, TIA, aneurysms, vasc ular dementia) History of falls Previous myocardial infarction Other Notes: Lung cancer, multiple sclerosis # of Emergency department Answers: 1-2 visits in the last 6 months Social determinants Answers: Mental health diagnosis (anxiety, depression, pers onality disorders, etc.) Score: 18 Date Signed: 10/28/2017 02:08 PM Electronically Signed By:JJ Oglesby [facility] Progress Note CM Note CM Note Notes: Patient very lethargic when this CM visited her this afternoon. Son reported that patient was a lot more talkative on admission than she has been during her hospital stay. He was concern that there might be more pressure on her brain. Another CT Scan was ordered. At this time, In-pt Rehab is following her but questions whether or not she would be able to do the 3hrs of rehab on Acute. Daughter interested in SNF's in the [facility]. Referrals sent to [facility] and [place]. Date Signed: 10/22/2017 05:13 PM Electronically Signed By:Adilene Flores LCSW [facility] Progress Note CM Note CM Note Notes: Patient continues to need ICU care. There is a concern for Meningitis. Patient is currently getting ABX; cefipme and vanco. Patient has been more somnolent. Currently PT/OT still recommending inpatient rehab. CM will follow. Date Signed: 10/24/2017 03:49 PM Electronically Signed By:Anay Grajeda LCSW [facility] CM Progress Note CM Note CM Note Notes: Met with patient's daughter, Padmaja as the family has decided they want their mom to be moved to SNF for [facility] care. Padmaja was given several names of SNF's to go tour. She would like to have something in [place] as she will be the one to manage most of her mother's needs although her brother will be managing the finances. Padmaja will let us know her 2 top choices so we can then follow-up. The family had a palliative care consult today and they are interested in Hospice but want to set up the SNF placement first. They have used [facility] for other family members with positive results but are flexible. CM will follow. Date Signed: 10/25/2017 03:04 PM Electronically Signed By:Anay Grajeda LCSW [facility] RG Progress Note CM Note CM Note Notes: Met with pt's dtr and son-in-law today. They stated have been looking at LTC facilities in [place]. [facility] did not have a room and they are considering [facility] and [facility]. At the time, the conversation cenetred on pt having a LTC placement with hospice. Later in PM, [facility] called to say that dtr had been back in and was now looking at a rehab stay. Unfortunately, PT/OT notes indicate pt is comfort care only and therefore [facility] cannot accept for rehab unless PT/OT get involved again and find that pt has rehab needs. Plan is to discuss with dtr tomorrow. Date Signed: 10/26/2017 03:56 PM Electronically Signed By:Brook Price LCSW [facility] CM Progress Note CM Note CM Note Notes: Discussed SNF rehab vs LTC bed with Dr Rhodes. Dr Rhodes feels that pt will continue to improve and rehab stay is reasonable. PT/OT will be reordered. LM for [facility]. They will need new therapy notes faxed when they are ready. CM to follow. Date Signed: 10/27/2017 01:54 PM Electronically Signed By:Brook Price LCSW Case Management Discharge Plan Note Case Management Discharge Discharge Order Complete? Answers: Yes Patient to Obtain Answers: [facility] Transportation Arranged Answers: [facility] W/C Transport will Pick (Date 10/28/2017 04:30 PM & Time) Case Management Transport Answers: Yes Form Complete Faxed Final Orders Answers: Yes Family Notified Answers: Yes Discharge Comments Notes: Pt discharging to [facility] today. D/C orders/meds sent via [employer]. Transport arranged by [facility]. IM signed, copy in chart and given to pt. Date Signed: 10/28/2017 03:27 PM Electronically Signed By:JJ Oglesby Intervention Information Intervention Type:*MARCIANO-Signed Date of Service:10/21/2017 09:36 AM Patient Type:Observation Staff Member:Marivel Michael Hours: Discipline: Severity: Comment: Intervention Type:*IM-Signed Date of Service:10/28/2017 02:32 PM Patient Type:Inpatient Staff Member:Marivel Michael Hours: Discipline: Severity: Comment:
--- NOTE | 2017-10-28 16:48 | ASMTCMCOM ---
CM Note CM Note Notes: Pt not discharging today due to need for BLS transport rather than w/c. [facility] unable to get here until 6:30 to 7:30 tonight because of weather. Discharge postponed until tomorrow after discussion with [facility]. Date Signed: 10/28/2017 04:47 PM Electronically Signed By:JJ Oglesby
--- NOTE | 2017-10-28 17:38 | GDS ---
[f rep st] DISCHARGE SUMMARY DISCHARGE DIAGNOSES: 1. Intracranial hemorrhage in the right lateral ventricle, as well as the left lateral ventricle. 2. History of ventriculoperitoneal shunt. 3. Encephalopathy, now improving. 4. Multiple sclerosis. 5. Chronic obstructive pulmonary disease. 6. Hypertension. 7. Depression. 8. Lung adenocarcinoma. 9. Fevers felt secondary to blood. 10. Urinary retention. HOSPITAL COURSE: Please see Admission History and Physical by Dr. Nii Galvan and consult by Dr. Gillian Guerrero. The patient presented with a fall. She had intracranial hemorrhage. She was followed by Neurosurgery with nonoperative management. She was on nicardipine for a bit of time. The patient b ecame somnolent. There was concern as to the cause. LP was performed which showed a lot of red cell s and a small amount of white cells, consistent with blood. Cultures were negative. She had negativ e UA. Chest imaging showed was abnormal because of her history of lung cancer and lung radiation. H owever, it was felt ultimately, when multiple scans were compared, to be no different. She did not h ave a pulmonary embolism. She received large volume lumbar puncture with really no change in her mental status. From about the 16th on, the patient gradually began to clear to the point where she is alert and able to do things, like answer the phone, but remains encephalopathic. There is actually a hospice consult pursued but ultimately, since the patient is beginning to improve a bit, she is discharged to SNF. /[id number]/MODL
[2017-10-28] MEDS: HYDROCODONE/APAP 5/325 TAB PO PRN (21:04)
[2017-10-28] MEDS: AMITRIPTYLINE HCL 10 MG TAB PO SCH (21:05)
[2017-10-29 08:17] VITALS: BP 129/62; RESP 17; TEMP 98.3; O2SAT 96
[2017-10-29] MEDS: ATENOLOL 25 MG TAB PO SCH (08:45)
[2017-10-29] MEDS: LISINOPRIL 5 MG TAB PO SCH (08:45)
[2017-10-29] MEDS: FLUoxetine 20 MG CAP PO SCH (08:45)
[2017-10-29] MEDS: HYDROCODONE/APAP 5/325 TAB PO PRN (08:47)
[2017-10-29 08:48] VITALS: PULSE 70
[2017-10-29] MEDS: SENNOSIDES/DOCUSATE SODIUM TAB PO SCH (09:00)
== END 2017-10-29 12:06 | DRG 64 ==
LOC: CED 11:11 → INTOOBSV 15:17 → F2N 16:56 → OBSVTOIN 10-21 14:54 → F1N 10-25 18:32
PROVIDERS: ADMIT Neurological Surgery; ATTEND Internal Medicine
PROC: 02HV33Z Insertion of Infusion Device into Superior Vena Cava, Percutaneous Approach (ICD-10-PCS; principal; 2017-10-23)
PROC: 009U3ZX Drainage of Spinal Canal, Percutaneous Approach, Diagnostic (ICD-10-PCS; 2017-10-23)
DX: I62.9 Nontraumatic intracranial hemorrhage, unspecified (principal); G93.40 Encephalopathy, unspecified; S92.502A Displaced unspecified fracture of left lesser toe(s), initial encounter for closed fracture; W19.XXXA Unspecified fall, initial encounter; Y92.009 Unspecified place in unspecified non-institutional (private) residence as the place of occurrence of the external cause; R50.9 Fever, unspecified; R33.9 Retention of urine, unspecified; G35 Multiple sclerosis; C34.32 Malignant neoplasm of lower lobe, left bronchus or lung; G91.9 Hydrocephalus, unspecified; I25.10 Atherosclerotic heart disease of native coronary artery without angina pectoris; I48.91 Unspecified atrial fibrillation; J44.9 Chronic obstructive pulmonary disease, unspecified; I10 Essential (primary) hypertension; I25.2 Old myocardial infarction; Z92.3 Personal history of irradiation; Z91.81 History of falling; Z98.2 Presence of cerebrospinal fluid drainage device; Z79.01 Long term (current) use of anticoagulants; Z66 Do not resuscitate; Z87.891 Personal history of nicotine dependence
CPT/HCPCS: 70450-PO; 71250-PO; 72125-PO; 73630-PO; 80048-PO; 82550-PO; 82553-PO; 82947-QW; 84484-PO; 85025-PO; 85610-PO; 92507-GN; 92523-GN; 92610-GN; 96374; 97112-GO; 97162-GP; 97164-GP; 97166-GO; 97168-GO; 97530-GO; 97530-GP; 97535-GO; C1751; G0378; G8978-GP-CM; G8978-GP-CN; G8979-GP-CJ; G8979-GP-CL; G8987-GO-CL; G8987-GO-CM; G8988-GO-CK; G8988-GO-CL; G8996-GN-CI; G8997-GN-CH; G9165-GN-CK; G9166-GN-CI; J0360; J0692; J2405; J2543; J3370; J3480; L4386; P9016; P9017; Q9967